=== PATIENT | male | born 1955 | race Caucasian/White ===

== ENCOUNTER 2021-08-17 16:26 | Outpatient (REF) | payer MEDICARE, SELFPAY ==
--- NOTE | ~2021-08-17 | XR_ITS ---
EXAMINATION: XR KNEE, LEFT CLINICAL INFORMATION: Pain in left knee. COMPARISON: None TECHNIQUE: Four views of the left knee. FINDINGS: There is loss of medial and patellofemoral compartment joint space with anterior superior patellar enthesophyte. There is mild suprapatellar joint effusion. No visible acute fracture, dislocation or lytic process seen. The soft tissues are normal. XR/XR knee LT 4V IMPRESSION: Mild degenerative spurring superior patella. No visible acute fracture or dislocation. Minimal suprapatellar joint effusion.
== END 2021-08-17 16:27 | disposition home or self-care (01) ==
LOC: HO.XRAY 16:26
PROVIDERS: PCP Internal Medicine Geriatric Medicine; Visit Provider Internal Medicine Geriatric Medicine
DX: M25.562 Pain in left knee (principal)
CPT/HCPCS: 73564

== ENCOUNTER → 2023-04-13 10:35 | Outpatient (BNVA) | payer MEDICARE, SELFPAY | PROVIDERS: PCP Internal Medicine Geriatric Medicine; Referring Provider Internal Medicine Geriatric Medicine; Visit Provider Internal Medicine Cardiovascular Disease | DX: I48.0 Paroxysmal atrial fibrillation (principal) | CPT/HCPCS: 93005; 99202 ==

== ENCOUNTER → 2023-04-15 12:41 | Outpatient (REF) | payer MEDICARE, SELFPAY ==
--- NOTE | 2023-04-15 12:46 | CA_ITS ---
Transthoracic Echocardiogram Patient (Last, First, Middle): Spike Roberts, Gender: Male Date of : 1955 Age: 68 Procedure Date: 04/15/2023 Procedure Type: Transthoracic Echocardiogram Location: OP Height: 167.64 cm Weight: 74.84 kg BSA: 1.84 m2 Heart Rate: bpm BP: 120 / 70 mmHg Spark Plug Tester: Referring MD: Jose Juan Lemus MD Electric Arc Furnace Operator: Jose Juan Lemus MD Symptoms: I48.0 - Paroxysmal atrial fibrillation Study Quality: Fair ECG Rhythm: Sinus Conclusions: - 1. Normal LV systolic function 2. Trivial aortic regurgitation 3. Normal RV systolic pressure 4. Upper limits of normal ascending aortic size 5. No pericardial effusion Findings Left Ventricle Normal left ventricular size, thickness, and systolic function. The visually estimated ejection fraction is between 60-65%. Spectral Doppler is indicative of a normal filling pattern. Right Ventricle Normal right ventricular cavity size and systolic function. Atria The left atrium is likely dilated. There is no evidence of interatrial shunt. The right atrium is normal in size. Aortic Valve Normal aortic valve structure and function. There is no aortic valve stenosis. There is trace (trivial) aortic valve regurgitation. Mitral Valve There is mild anterior and posterior mitral leaflet thickening. There is mild mitral valve regurgitation. There is no mitral valve stenosis. Pulmonic Valve The pulmonic valve was not well visualized. Tricuspid Valve Likely normal tricuspid valve structure and function. There is trace tricuspid valve regurgitation. The right ventricular systolic pressure is normal. The right ventricular systolic pressure is 19 mmHg. Normal right atrial pressure. There is no evidence of pulmonary hypertension. Great Vessels The pulmonary artery was not well visualized. Venous The inferior vena cava is normal in size and collapses greater than 50% with inspiration. Pericardium/Pleural There is no evidence of pericardial effusion. Prior Study Comparison No prior study available for comparison. Measurements 2D Linear Measurements IVSd: 1.03 0.6-0.9/0.6-1.0 cm LVIDd: 4.77 3.9-5.3/4.2-5.9 cm LVIDd Index: 2.59 2.4-3.2/2.2-3.1 cm/m2 LVIDs: 3.30 2.0-3.6 cm LVPWd: 0.87 0.7-1.1 cm LA Diam: 4.00 2.7-3.8/3.0-4.0 cm LAIDs Index: 2.17 1.5-2.3 cm/m2 LV Mass: 195.18 67-162/88-224 g LV Mass Index: 106.08 43-95/49-115 g/m2 LVOT Diam: 2.10 3.0+(-)1.3 cm 2D Systolic Function EF 4C: 59.60 >55% EF 2C: 63.00 >55% EF BiP: 61.30 >55% Mitral Valve MV Pk E: 0.56 MV PK A: 0.52 MV Decel Time: 270.00 E/A: 1.10 E'Lateral: 11.40 E'Medial: 6.96 E/E' Med: 8.10 E/E' Lat: 4.90 PHT: 79.00 MVA PHT: 2.78 Decel [place]: 2.08 Aortic Valve AoV Pk Petr: 1.57 AoV Mn Petr: 1.04 AoV VTI: 0.32 AoV Pk Grad: 10.00 Aov Mn Grad: 5.00 CELY Cont.VTI: 2.87 LVOT LVOT Pk Petr: 1.34 LVOT Mn Petr: 0.80 LVOT VTI: 0.26 LVOT Pk Grad: 7.00 LVOT Mn Grad: 3.00 LVOT Diam: 2.10 LVOT Area: 3.46 Diastolic Function MV Pk E: 0.56 MV Pk A: 0.52 E/A: 1.10 E'Medial: 6.96 E/E' Med: 8.10 E' Laterial: 11.40 E/E' Lat: 4.90 Right Ventricle TAPSE (mm): 24.00 TVS' Petr: 11.00 Tricuspid Valve TR Pk Petr: 2.01 TR Pk Grad: 16.00 RA Press: 3.00 RVSP: 19.00 Great Vessels Aorta Sinus of Valsalva: 3.43 2.0-3.[address] [place]: 2.79 1.7-3.4 cm Ao Asc: 3.60 2.1-3.4 cm Updated in Other Vendor System with Status of Final Suhas Gill MD electronically signed on 04/16/2023 2:09:49 PM with status of Final
== END ==
LOC: HO.CARD 12:41
PROVIDERS: PCP Internal Medicine Geriatric Medicine; Visit Provider Internal Medicine Cardiovascular Disease
DX: I48.0 Paroxysmal atrial fibrillation (principal)
CPT/HCPCS: 93306

== ENCOUNTER → 2023-04-25 08:19 | Outpatient (REF) | payer MEDICARE, SELFPAY ==
--- NOTE | 2023-04-25 08:21 | CA_ITS ---
Acquisition Time: 2023-04-25 08:33:42 Total Exercise Time: 00:07:40 Test Indications: AFIB Medications: SEE H Protocol: REN Max HR: 155 BPM 103% of Pred: 150 BPM Max BP: 160/084 mmHG Max Work Load: 9.5 METS Exercise stress test exercise 7 min 40 sec of Ren protocol achieivng 102% MPHR, with mild SOB, no chest discomfort, with frequent isolated PVCs and short NSVT runs noted during stage 3, longest 7 beats, without EKG changes meeting criteria for ischemia. Test reviewed with Mayito. Referred By: Jose Juan Lemus Overread By: NIGEL CAMARENA
== END ==
LOC: HO.CARD 08:19
PROVIDERS: PCP Internal Medicine Geriatric Medicine; Visit Provider Internal Medicine Cardiovascular Disease
DX: I48.0 Paroxysmal atrial fibrillation (principal)
CPT/HCPCS: 93017

== ENCOUNTER 2023-07-18 15:16 | Outpatient (REF) | payer MEDICARE, SELFPAY ==
[2023-07-18 17:21] LABS: Cholesterol 157 mg/dL (<200); HDL Cholesterol 81 mg/dL (>40); LDL Cholesterol Calculated 66 mg/dL (<100); Triglycerides 50 mg/dL (<150)
[2023-07-18 17:37] LABS: TSH reflex Free T4 1.82 uIU/mL (0.32-4.0)
== END 2023-07-18 15:17 | disposition home or self-care (01) ==
LOC: HO.HHCL 15:16
PROVIDERS: Visit Provider Registered Nurse
DX: E78.00 Pure hypercholesterolemia, unspecified (principal); E03.9 Hypothyroidism, unspecified
CPT/HCPCS: 36415; 80061; 84443

== ENCOUNTER 2023-08-17 08:55 | Outpatient (AMB) | payer MEDICARE, SELFPAY ==
--- NOTE | 2023-08-17 09:10 | MHC.OFFVIS ---
Intake Vital Signs 08/17/23 09:11 Height 5 ft 6 in Weight 167 lb 8.821 oz BMI 27.0 BP 120/76 Blood Pressure Location Lt brachial Position Sitting Pulse 62 Intake Visit Reasons: 3 MON FUP AFTER ECHO Intake Note: 3 month follow-up after echo feeling good has not had any afib since February Fuel Yard Operator Required: No Allergies No Known Allergies [No Known Allergies*] Allergy (Verified 04/13/23 10:49) Medication List - Last Reconciled 08/17/23 by Jose Juan Lemus MD flecainide 300 mg (2 x 150 mg) PO ONCE PRN latanoprost 0.005% 1 drp ophthalmic (eye) BEDTIME levothyroxine (Synthroid) 88 mcg PO DAILY pravastatin 20 mg PO DAILY tamsulosin 0.4 mg PO DAILY zolpidem 5 mg PO BEDTIME PRN HPI HPI Comments History of Present Illness Details Pleasant 68-year-old gentleman who is here for follow-up. 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 He had paroxysmal atrial fibrillation. We decided to pill in the pocket approach. He returns for follow-up and has no symptoms currently. He did not have any palpitation and did not require any flecainide. Chads Vasc score was 1 and he has not been on anticoagulation currently. Continues to be active and has no exertional symptoms. Overall stable. Denying any symptoms. [facility] Surgical History (Updated 04/13/23 @ 10:50 by YAMILA Ulrich) History of circumcision Family History (Updated 04/13/23 @ 10:52 by YAMILA Ulrich) Mother Cancer Father Heart disease S/P triple vessel bypass Diabetes Amputation leg, bilat Paternal Uncle Heart disease Social History (Updated 04/13/23 @ 10:53 by YAMILA Ulrich) Alcohol intake: current Alcohol intake frequency: a few times a month Patient Tobacco Use Status: Never used Tobacco Review of Systems Const Denies chills, Denies fatigue, Denies fever(s), Denies frequent falls, Denies weakness, Denies weight gain and Denies weight loss ENT Denies dizziness Card Denies chest pain, Denies leg edema, Denies lightheadedness, Denies palpitations, Denies dyspnea, Denies dyspnea on exertion, Denies orthopnea and Denies other (loss of consciousness) Resp Denies cough, Denies dyspnea and Denies dyspnea on exertion GI Denies hematochezia and Denies change in stool character Musc Denies abnormal gait, Denies muscle weakness, Denies numbness, Denies radiating pain into limb and Denies tingling Neuro Denies abnormal gait, Denies dizziness, Denies frequent falls, Denies numbness, Denies tingling and Denies weakness Endo Denies fatigue and Denies palpitations Physical Exam Vital Signs: Last Vital Signs Pulse 62 08/17/23 09:11 BP 120/76 08/17/23 09:11 BMI result Body Mass Index 27.0 GENERAL APPEARANCE: in no acute distress, pleasant. NECK: no carotid bruit, no jugular venous distention. SKIN: no suspicious lesions, warm and dry. HEART: no murmurs, regular rate and rhythm. LUNGS: clear to auscultation bilaterally. ABDOMEN: soft, nontender. EXTREMITIES: no edema. PERIPHERAL PULSES: equal. NEUROLOGIC: No gross deficits, AAO X 3 Assessment & Plan Assessment & Plan (1) PAF (paroxysmal atrial fibrillation): Code(s): I48.0 - Paroxysmal atrial fibrillation Plan Pleasant 68-year-old gentleman who is here for follow-up. He has history of paroxysmal atrial fibrillation. We have been treating him with pain in the pocket approach. He has not required flecainide since his initial visit in February 2023. Medically stable. He will see us back in 1 year. Thank you for allowing me to participate in the care of your patient. Please feel free to contact me if you have any questions. Coding Level of Care Code Est Pt Level 3 (77773) Diagnoses PAF (paroxysmal atrial fibrillation) I48.0
[2023-08-17 09:11] VITALS: BP 120/76; PULSE 62; BMI 27.0
== END 2023-08-17 10:01 | disposition home or self-care (01) ==
PROVIDERS: PCP Internal Medicine Geriatric Medicine; Visit Provider Internal Medicine Cardiovascular Disease
DX: I48.0 Paroxysmal atrial fibrillation (principal)
CPT/HCPCS: 99213

== ENCOUNTER → 2023-08-17 08:55 | Outpatient (BNVA) | payer MEDICARE, SELFPAY | PROVIDERS: PCP Internal Medicine Geriatric Medicine; Visit Provider Internal Medicine Cardiovascular Disease | DX: I48.0 Paroxysmal atrial fibrillation (principal) | CPT/HCPCS: 99212 ==

== ENCOUNTER 2023-11-16 09:07 | Outpatient (REF) | payer MEDICARE, SELFPAY ==
[2023-11-16 11:26] LABS: MANUAL DIFF FLAG NO
[2023-11-16 11:30] LABS: Basophils Percent Auto 0.2 % (0-2); Eosinophils Percent Auto 0.4 % (0-4); Hematocrit 45.5 % (42.0-52.0); Hemoglobin 15.3 g/dl (14.0-18.0); Imm Gran Abs Auto 0.02 X10*3/uL (0.00-0.03); Imm Gran Pct Auto 0.4 % (0.0-0.4); Lymphocytes Absolute Auto 1.2 X10*3/uL (1.2-4.9); Lymphocytes Percent Auto 23.2 % (20-40); Mean Corpuscular HGB Conc 33.6 g/dl (31.0-36.0); Mean Corpuscular Hemoglobin 30.8 pg (27.0-33.0); Mean Corpuscular Volume 91.5 fL (80.0-98.0); Mean Platelet Volume 10.2 fL (9.4-12.4); Monocytes Absolute Auto 0.3 X10*3/uL (0.1-1.2); Monocytes Percent Auto 6.5 % (2-11); Neutrophils Absolute Auto 3.4 x10*3/uL (2.0-8.3); Neutrophils Percent Auto 69.3 % (45-73); Platelet Count 203 X10*3/uL (160-400); Red Blood Count 4.97 X10*6/uL (4.60-5.80); Red Cell Distribution Width 12.6 % (11.0-16.0)
[2023-11-16 12:08] LABS: Alanine Aminotransferase 20 U/L (0-40); Albumin Level 4.1 g/dL (3.5-5.0); Alkaline Phosphatase 74 U/L (39-117); Anion Gap 10 (12-20); Aspartate Amino Transferase 21 U/L (5-37); Bilirubin Total 1.1 mg/dL (0.0-1.0); Blood Urea Nitrogen 16 mg/dL (9-16); Calcium 9.6 mg/dL (8.4-10.2); Carbon Dioxide 25 mmol/L (22-29); Chloride 106 mmol/L (96-108); Cholesterol 145 mg/dL (<200); Estimated Glomerular Filt Rate 57; Glucose Random 86 mg/dL (60-115); HDL Cholesterol 76 mg/dL (>40); LDL Cholesterol Calculated 61 mg/dL (<100); Potassium 4.1 mmol/L (3.3-5.1); Sodium 137 mmol/L (135-145); Triglycerides 41 mg/dL (<150)
[2023-11-16 12:09] LABS: TSH reflex Free T4 1.76 uIU/mL (0.32-4.0)
== END 2023-11-16 09:08 | disposition home or self-care (01) ==
LOC: HO.HHCL 09:07
PROVIDERS: Visit Provider Internal Medicine Geriatric Medicine
DX: E78.00 Pure hypercholesterolemia, unspecified (principal); I48.0 Paroxysmal atrial fibrillation; F51.01 Primary insomnia
CPT/HCPCS: 36415; 80053; 80061; 84443; 85025

== ENCOUNTER 2023-11-30 09:02 | Outpatient (REF) | payer MEDICARE, SELFPAY ==
[2023-11-30 12:27] LABS: Anion Gap 11 (12-20); Blood Urea Nitrogen 16 mg/dL (9-16); Carbon Dioxide 25 mmol/L (22-29); Chloride 105 mmol/L (96-108); Estimated Glomerular Filt Rate > 60; Glucose Random 78 mg/dL (60-115); Sodium 137 mmol/L (135-145)
== END 2023-11-30 09:03 | disposition home or self-care (01) ==
LOC: HO.HHCL 09:02
PROVIDERS: Visit Provider Internal Medicine Geriatric Medicine
DX: R79.89 Other specified abnormal findings of blood chemistry (principal)
CPT/HCPCS: 36415; 80048

== ENCOUNTER → 2024-06-20 08:51 | Outpatient (REF) | payer MEDICARE, SELFPAY | LOC: HO.SL 08:51 | PROVIDERS: PCP Internal Medicine Geriatric Medicine; Visit Provider Internal Medicine Geriatric Medicine | DX: G47.10 Hypersomnia, unspecified (principal); R06.83 Snoring; I48.0 Paroxysmal atrial fibrillation | CPT/HCPCS: 95806 ==

== ENCOUNTER → 2024-06-20 19:00 | Outpatient (BNV) | payer MEDICARE, SELFPAY | PROVIDERS: PCP Internal Medicine Geriatric Medicine; Visit Provider Internal Medicine | DX: R06.83 Snoring (principal) | CPT/HCPCS: 95806 ==

== ENCOUNTER 2024-08-15 09:02 | Outpatient (AMB) | payer MEDICARE, SELFPAY ==
--- NOTE | 2024-08-15 09:13 | MHC.OFFVIS ---
Vital Signs 08/15/24 09:14 Height 5 ft 6 in Weight 166 lb 10.711 oz BMI 26.9 BP 120/64 Blood Pressure Location Lt brachial Position Sitting Pulse 54 Pulse Source Monitor Intake Visit Reasons: 1 yr f/up Intake Note: 1 yr f/up Natural Resources Faculty Member Required: No Accompanied by: Self / Same As Patient Allergies No Known Allergies [No Known Allergies*] Allergy (Verified 04/13/23 10:49) Medication List - Last Reconciled 08/15/24 by Jose Juan Lemus MD atenolol 12.5 mg (1/2 x 25 mg) PO DAILY 90 days flecainide 50 mg PO Q12H 90 days latanoprost 0.005% 1 drp ophthalmic (eye) BEDTIME levothyroxine (Synthroid) 88 mcg PO DAILY pravastatin 20 mg PO DAILY tamsulosin 0.4 mg PO DAILY zolpidem 5 mg PO BEDTIME PRN HPI Comments Details: Pleasant 69-year-old gentleman who is here for follow-up. 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 He had paroxysmal atrial fibrillation. We decided to pill in the pocket approach. He returns for follow-up and has no symptoms currently. He did not have any palpitation and did not require any flecainide. Chads Vasc score was 1 and he has not been on anticoagulation currently. Continues to be active and has no exertional symptoms. Overall stable. Denying any symptoms. 08/15/2024: He is here for follow-up. He is on flecainide 50 mg twice a day along with the atenolol. Chads Vasc 1 and currently not on anticoagulation. Has been doing okay on flecainide and atenolol. He has been complaints are fatigue and shortness of breath. He is saying that he is unable to do what he was able to do before he started taking beta-blockers. He had some issues with beta-yola previously 2. He has questions about why he is not on anticoagulation which were answered. He is also asking whether he can get a calcium score. We discussed that he is already on statin therapy and his last cholesterol testing showed LDL of 61. [facility] Surgical History History of circumcision Family History Mother Cancer Father Heart disease S/P triple vessel bypass Diabetes Amputation leg, bilat Paternal Uncle Heart disease Social History Alcohol intake: current Alcohol intake frequency: a few times a month Patient Tobacco Use Status: Never used Tobacco Review of Systems Const Denies chills, Denies fatigue, Denies fever(s), Denies frequent falls, Denies weakness, Denies weight gain and Denies weight loss ENT Denies dizziness Card Denies chest pain, Denies leg edema, Denies lightheadedness, Denies palpitations, Denies dyspnea and Denies dyspnea on exertion Resp Denies cough, Denies dyspnea and Denies dyspnea on exertion GI Denies hematochezia Musc Denies abnormal gait, Denies muscle weakness, Denies numbness, Denies radiating pain into limb and Denies tingling Neuro Denies abnormal gait, Denies dizziness, Denies frequent falls, Denies numbness, Denies tingling and Denies weakness Endo Denies fatigue and Denies palpitations Physical Exam Vital Signs: Last Vital Signs Pulse 54 08/15/24 09:14 BP 120/64 08/15/24 09:14 BMI result Body Mass Index 26.9 GENERAL APPEARANCE: in no acute distress, pleasant. NECK: no carotid bruit, no jugular venous distention. SKIN: no suspicious lesions, warm and dry. HEART: no murmurs, regular rate and rhythm. Bradycardic. LUNGS: clear to auscultation bilaterally. ABDOMEN: soft, nontender. EXTREMITIES: no edema. PERIPHERAL PULSES: equal. NEUROLOGIC: No gross deficits, AAO X 3 Office Procedures EKG Details: Sinus bradycardia 54 beats per minute, first-degree AV block with TX interval 212 milliseconds, poor R-wave progression, QTC 396 milliseconds. [id number], Complete Assessment & Plan Assessment & Plan (1) PAF (paroxysmal atrial fibrillation): Code(s): I48.0 - Paroxysmal atrial fibrillation Category: Medical Plan Pleasant 69-year-old gentleman who is here for follow-up. He has background history of paroxysmal atrial fibrillation. He is currently being treated with rhythm control strategy flecainide and atenolol. His CHADS-VASc is 1 currently and he is not on anticoagulation. I have explained to him that if he develops diabetes or hypertension or once across his 73 years of age we may need to have a discussion about anticoagulation. He wants to do a coronary calcium score. We will arrange this for him. If he has extensive calcification then I would change his pravastatin to atorvastatin. I am not sure whether coronary calcification will count as vascular disease but there is some retrospective data about coronary calcification and stroke risk in atrial fibrillation patients. This will require some discussion about anticoagulation in case his coronary calcium score is fairly high. Multiple questions which were answered during the visit. He will see us back in 1 year. Thank you for allowing me to participate in the care of your patient. Please feel free to contact me if you have any questions. Orders: Orders CT Coronary Calcium Score Today I48.0 - Paroxysmal atrial fibrillation Coding Level of Care Code Est Pt Level 5 (05618) Diagnoses PAF (paroxysmal atrial fibrillation) I48.0 CPT Codes EKG - CPT: 30070-[id number], Complete ([id number])
[2024-08-15 09:14] VITALS: BP 120/64; PULSE 54; BMI 26.9
== END 2024-08-15 09:46 | disposition home or self-care (01) ==
PROVIDERS: PCP Internal Medicine Geriatric Medicine; Visit Provider Internal Medicine Cardiovascular Disease
DX: I48.0 Paroxysmal atrial fibrillation (principal)
CPT/HCPCS: 93010; 99214

== ENCOUNTER → 2024-08-15 09:02 | Outpatient (BNVA) | payer MEDICARE, SELFPAY | PROVIDERS: PCP Internal Medicine Geriatric Medicine; Visit Provider Internal Medicine Cardiovascular Disease | DX: I48.0 Paroxysmal atrial fibrillation (principal); I44.0 Atrioventricular block, first degree; R94.31 Abnormal electrocardiogram [ECG] [EKG] | CPT/HCPCS: 93005; 99212 ==

== ENCOUNTER 2024-10-29 08:19 | Outpatient (REF) | payer MEDICARE, SELFPAY ==
--- OUTSIDE RECORDS SUMMARY | 2024-10-29 08:22 | XMS_ITS | Patient Health Record ---
Author Organization [facility] Address [address], [place] [id number] Care Team Providers Care Industrial Economics Teacher Name Role Phone Chavez Sahu Unavailable [phone] Reason For Referral No Information Medications Medication SIG (Take, Route, Frequency, Duration) Notes Start Date End Date Status levothyroxine Active Plan Of Treatment No Information Insurance Providers Payer Name Payer Address Payer Phone Subscriber Number Group Number Insured Name Patient Relationship to Insured Coverage Start Date Coverage End Date zMA Medicare - Part B [employer] [address] [place] [address] [id number] Spike Roberts Self - patient is the insured BCBS of [facility] [address] [place] [address] [id number] Spike Roberts Self - patient is the insured 8 Medical (General) History Medical History History ICD Code Hypothyroid, otherwise he is healthy
[2024-10-29 09:25] LABS: Alanine Aminotransferase 24 U/L (0-40); Alkaline Phosphatase 77 U/L (39-117); Anion Gap 10 (12-20); Aspartate Amino Transferase 28 U/L (5-37); Blood Urea Nitrogen 13 mg/dL (9-16); Calcium 9.3 mg/dL (8.4-10.2); Carbon Dioxide 25 mmol/L (22-29); Chloride 108 mmol/L (96-108); Cholesterol 147 mg/dL (<200); Estimated Glomerular Filt Rate > 60; Glucose Random 87 mg/dL (60-115); HDL Cholesterol 77 mg/dL (>40); LDL Cholesterol Calculated 61 mg/dL (<100); Sodium 139 mmol/L (135-145); Total Protein 6.8 g/dL (6.5-8.0); Triglycerides 45 mg/dL (<150)
[2024-10-29 09:31] LABS: TSH reflex Free T4 0.78 uIU/mL (0.32-4.0)
[2024-10-29 09:35] LABS: Prostate Specific Antigen 0.52 ng/mL (<0.05-4.0)
== END 2024-10-29 08:20 | disposition home or self-care (01) ==
LOC: HO.LAB 08:19
PROVIDERS: PCP Internal Medicine Geriatric Medicine; Visit Provider Internal Medicine Geriatric Medicine
DX: E03.9 Hypothyroidism, unspecified (principal); H81.13 Benign paroxysmal vertigo, bilateral; E78.00 Pure hypercholesterolemia, unspecified; Z12.5 Encounter for screening for malignant neoplasm of prostate
CPT/HCPCS: 36415; 80053; 80061; 84153; 84443

== ENCOUNTER 2025-02-09 10:08 | Outpatient (REF) | payer MEDICARE, SELFPAY ==
--- NOTE | ~2025-02-09 | XR_ITS ---
EXAMINATION: XR CHEST 2 VIEWS HISTORY: 2 weeks of cough and malaise, LLL crackles COMPARISON: There are no prior studies for comparison. FINDINGS: PA and lateral views of the chest are submitted. The lungs are expanded and clear. There is no pleural effusion, pneumothorax, or pulmonary vascular congestion. The heart is normal in size. There is scoliosis and degenerative disc disease of the spine. XR/XR chest 2V IMPRESSION: Clear lungs. Electronically signed by: Ad Quinones MD 02/11/2025 08:20 AM EDT
--- OUTSIDE RECORDS SUMMARY | 2025-02-09 10:11 | XMS_ITS | Encounter Summary ---
Author Organization [facility] Address [address] [place] [address] Care Team Providers Care Woven Blind Loom Tender Name Role Phone Jose Antonio Luevano MD Primary Care Provider + [phone] Reason for Visit * Reason Onset Date Comments TEST RESULTS 09/24/2020 Encounter Details Date Type Department Care Team Description 09/24/2020 Telephone Dermatology - [address] [id number] Katerine Hussein PA-C TEST RESULTS Social History Tobacco Use Types Packs/Day Years Used Date Smoking Tobacco: Never Smokeless Tobacco: Never Alcohol Use Standard Drinks/Week Comments Yes 0 (1 standard drink = 0.6 oz pur e alcohol) occ Sex Assigned at Date Recorded Not on file COVID-19 Exposure Response Date Recorded In the last month, have you been in contact with someone who was confirmed or suspected to have Coronavirus / COVID-19? 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 We reviewed treatment options including Mohs surgery versus plastic surgery. We reviewed risks and benefits of both treatment. He would like to contact his insurance company to decide which p rocedure is better covered. I have given him the names of the surgeons in the area. He will contactme next week with his decision. At that time I would also like him to schedule a follow-up in 6 weeks to reevaluate the other 2 biopsies which were consistent with actinic keratoses. * Telephone Encounter - Holli Thais - 09/24/2020 9:01 AM EST Patient is returning a phone call to discuss test results, please advise. documented in this encounter Plan of Treatment Not on file documented as of this encounter Visit Diagnoses Not on filedocumented in this encounter Care Teams Woven Blind Loom Tender Relationship Specialty Start Date End Date Jose Antonio Luevano MD [address] [place] [id number] PCP - General Internal Medicine 08/15/15 documented as of this encounter
--- OUTSIDE RECORDS SUMMARY | 2025-02-09 10:11 | XMS_ITS | Encounter Summary ---
Author Organization [facility] Address [address] [place] [address] Care Team Providers Care Night Nurse Name Role Phone Jose Antonio Luevano MD Primary Care Provider [phone] Reason for Visit * Reason Onset Date Comments Quality-fobt 02/26/2016 fit cards given today at physical. Encounter Details Date Type Department Care Team Description 02/26/2016 Telephone Adult Medicine [address] [address] Jose Antonio Luevano MD [address] [place] [id number] Quality-fobt (fit cards given today at physical.) Social History Tobacco Use Types Packs/Day Years Used Date Smoking Tobacco: Never Smokeless Tobacco: Never Alcohol Use Standard Drinks/Week Comments Yes 0 (1 standard drink = 0.6 oz pur e alcohol) occ Sex Assigned at Date Recorded Not on file documented as of this encounter Plan of Treatment Not on file documented as of this encounter Visit Diagnoses Not on filedocumented in this encounter Care Teams Night Nurse Relationship Specialty Start Date End Date Jose Antonio Luevano MD [address] [place] [id number] PCP - General Internal Medicine 08/15/15 documented as of this encounter
--- OUTSIDE RECORDS SUMMARY | 2025-02-09 10:11 | XMS_ITS | Encounter Summary ---
Author Organization [employer] Address [address] [facility] 7[address] [place] [address] Care Team Providers Care Smooth Stucco Resurfacer Name Role Phone Name, Ramon LAY Primary Care Provider [phone] Reason for Visit * Reason Comments Cough Encounter Details Date Type Department Care Team ([facility] st Contact Info) Description 02/09/2025 9:20 AM EDT Office Visit [facility] [address] [id number] Name, MD Ramon [address] [place] [phone] Cough, unspecified type (Primary Dx); Hoarseness of voice; Stuffy and runny nose; Rapid or irregular heartbeat; Paroxysmal atrial fibrillation (CMS/HCC) Social History Tobacco Use Types Packs/Day Years Used Date Smoking Tobacco: Never Passive Smoke Exposure: Never Smokeless Tobacco: Never Tobacco Cessation:Counseling Given: Not Answered Alcohol Use Standard Drinks/Week Comments Yes 2 (1 standard drink = 0.6 oz pur e alcohol) 1-2 daily Depression Answer Date Recorded Patient Health Questionnaire-9 Score 0 03/19/2024 Patient Health Questionnaire-9 Score 0 03/19/2024 Last PHQ-9: Questionnaire Data Not on file 0 03/19/2024 Housing Stability Answer Date Recorded What is your housing situation today? I have berny emmanuel 03/19/[address] you li ve. Do you have problems with any of the following? None of the above 03/19/2024 Food Insecurity Answer Date Recorded Within the past 12 months, y ou worried that your food would run out before you got money to buy more: Never True 03/19/2024 Within the past 12 months,th e food you bought just didn't last and you didn't have enough money to get more: Never True Transportation Answer Date Recorded In the past 12 months, has l ack of transportation kept you from medical appts, meetings, work or from getting things needed for daily living? No 03/19/2024 Utilities Answer Date Recorded In the past 12 months, has t he electric, gas, oil or water company threatened to shut off services in your home? No 03/19/2024 Depression Answer Date Recorded Patient Health Questionnaire-2 Score 0 03/19/2024 Sex and Gender Information Value Date Recorded Sex Assigned at Male 08/30/2022 10:36 AM EDT Legal Sex Male 10:36 AM EDT Gender Identity Male 08/30/2022 10:36 AM EDT Sexual Orientation Straight 08/30/2022 10 :36 AM EDT documented as of this encounter Last Filed Vital Signs Vital Sign Reading Time Taken Comments Blood Pressure 105/63 02/09/2025 9:23 AM EDT Pulse 64 02/09/2025 9:23 AM EDT Temperature 36.5 ??C (97.7 ??F) 02/09/2025 9:23 AM ED T Respiratory Rate 20 02/09/2025 9:23 AM EDT Oxygen Saturation 97% 02/09/2025 9:23 AM EDT Inhaled Oxygen Concentration - - Weight 76.2 kg (168 lb) 02/09/2025 9:23 AM EDT Height 167.6 cm (5' 6 ) 02/09/2025 9:23 AM EDT Body Mass Index 27.12 02/09/2025 9:23 AM EDT documented in this encounter Progress Notes * Ramon Cuellar MD - 02/09/2025 9:20 AM EDT Subjective Patient ID: Misael Roberts is a 69 y.o. male who presents for Cough. Misael comes for a sick visit. The patient has 2 weeks of cough, tachycardia, runny nose, hoarseness,malaise. The patient had chills at home. He denies any fever. He has been using [id number] dextromethorphan with small improvement of the cough. He has a personal history of paroxysmal A-fib. He has been careful to avoid oral decongestants. The patient A-fib has been occurring much more oftensince he has been sick. His installment agent has recommended that he start on Eliquis and he suggested him to double the dose of atenolol. He has not done either yet. Today rapid testing for COVID and flu were negative. Review of Systems Constitutional: Positive for chills and fatigue. Negative for fever. HENT: Positive for rhinorrhea. Negative for sinus pain and sore throat. Respiratory: Positive for cough. Negative for chest tightness and shortness of breath. Cardiovascular: Negative for chest pain, palpitations and leg swelling. Gastrointestinal: Negative for abdominal pain and blood in stool. Visit Vitals BP 105/63 (BP Location: Left arm, Patient Position: Sitting, BP Cuff Size: Adult) Pulse 64 Temp 97.7 ??F (36.5 ??C) (Oral) Resp 20 Ht 5' 6 (1.676 m) Wt 168 lb (76.2 kg) SpO2 97% BMI 27.12 kg/m?? Smoking Status Never BSA 1.88 m?? Objective Physical Exam Constitutional: Appearance: Normal appearance. Cardiovascular: Rate and Rhythm: Normal rate. Rhythm irregular. Heart sounds: No murmur heard. Pulmonary: Effort: Pulmonary effort is normal. No respiratory distress. Breath sounds: Rales present. No wheezing or rhonchi. Comments: LLL rales Abdominal: Palpations: Abdomen is soft. Tenderness: There is no abdominal tenderness. Musculoskeletal: Right lower leg: No edema. Left lower leg: No edema. Neurological: Mental Status: He is alert. Latest Reference Range & Units 02/09/25 09:53 02/09/25 09:54 Influenza A Negative, Indeterminate Negative Influenza B Negative, Indeterminate Negative Coronavirus Antigen PCR Negative, Indeterminate, None Detected, Invalid, Specimen unsatisfactory for evaluation, Weakly Positive Negative Assessment/Plan Diagnoses and all orders for this visit: Cough, unspecified type Comments: Patient with 2 weeks of cough, malaise, worsening of his baseline paroxysmal A- fib. His vitals are normal, I recommended to start using the Eliquis prescribed by his installment agent for stroke prevention, continue atenolol. I will start the patient on treatment for possible community-acquired pneumonia with Augmentin and azithromycin, I recommended evaluation with CBC, BMP, TSH and chest x-ray. He may continue using dextromethorphan at home. He is recommended to rest. I will have my nurses call him to see how he is doing on Tuesday. Orders: - POCT Rapid Covid-19 MARTÍNEZ ID NOW - POCT Rapid Influenza A MARTÍNEZ ID NOW - POCT Rapid Influenza B MARTÍNEZ ID NOW - amoxicillin-clavulanate (Augmentin) 875-125 MG tablet; Take 1 tablet by mouth 2 times daily for 5days. - azithromycin (Zithromax) 250 MG tablet; Take 2 tablets (500 mg) by mouth Once per day for 1 day, THEN 1 tablet (250 mg) Once per day for 4 days. - CBC auto differential; Future - Basic Metabolic Panel; Future - XR Chest 2 Views; Future Hoarseness of voice Stuffy and runny nose Rapid or irregular heartbeat - TSH W/Reflex to FT4; Future Paroxysmal atrial fibrillation (CMS/HCC) documented in this encounter Plan of Treatment Upcoming Encounters Date Type Department Care Team (Late st Contact Info) Description 05/09/2025 9:00 AM EDT Office Visit [facility] [address] [place] [phone] Ramon Cuellar MD [address] [place] [address] Scheduled Orders Name Type Priority Associated Diagnoses Orde r Schedule CBC auto differential Lab Routine Cough, unspecified type Expected: 02/09/2025 (Approximate), Expires: 02/09/2026 Basic Metabolic Panel Lab Routine Cough, unspecified type Expected: 02/09/2025 (Approximate), Expires: 02/09/2026 TSH W/Reflex to FT4 Lab Routine Rapid or irregular heartbeat Expected: 02/09/2025 (Approximate), Expires: 02/09/2026 XR Chest 2 Views Imaging Routine Cough, unspecified type Expected: 02/09/2025, Expires: 02/09/2026 documented as of this encounter Procedures Procedure Name Priority Date/Time Associated Diagnosis Comments POCT INFLUENZA B (ID NOW RAPID MOLECULAR) Routine 02/09/2025 9:54 AM EDT Cough, unspecified type POCT INFLUENZA A (ID NOW RAPID MOLECULAR) Routine 02/09/2025 9:54 AM EDT Cough, unspecified type POCT COVID-19 AG MARTÍNEZ ID NOW Routine 02/09/2025 9:53 AM EDT Cough, unspecified type documented in this encounter Results * POCT Rapid Influenza B MARTÍNEZ ID NOW (02/09/2025 9:54 AM EDT) Pathologist [facility] Influenza B Negative Negative, Indeterminate LABS QC Media Lot # [id number] [facility] Lot# Expiration Date LABS Swab 02/09/2025 9:54 AM EDT us Ramon Cuellar MD POINT OF CARE TEST ENTER/EDIT OR DERABLES Final Result Performing Organization Address City/[facility]/ZIP Co de Phone Number LABS [address] [place] [phone] * POCT Rapid Influenza A MARTÍNEZ ID NOW (02/09/2025 9:54 AM EDT) [facility] Influenza A Negative Negative, Indeterminate LABS QC Media Lot # [id number] [facility] Lot# Expiration Date LABS Swab 02/09/2025 9:54 AM EDT us Ramon Cuellar MD POINT OF CARE TEST ENTER/EDIT OR DERABLES Final Result Performing Organization Address City/[facility]/ZIP Co de Phone Number LABS [address] [place] [phone] * POCT Rapid Covid-19 MARTÍNEZ ID NOW (02/09/2025 9:53 AM EDT) Pathologist [facility] Coronavirus Antigen PCR Negative Negative, Indeterminate, None Detected, Invalid, Specimen unsatisfactory for evaluation, Weakly Positive QC Media Lot # [id number] Lot# Expiration Date Swab 02/09/2025 9:53 AM EDT Ramon Cuellar MD POINT OF CARE TEST ENTER/EDIT OR DERABLES Final Result documented in this encounter Visit Diagnoses Diagnosis Cough, unspecified type- Primary Hoarseness of voice Dysphonia Stuffy and runny nose Other diseases of nasal cavity and sinuses Rapid or irregular heartbeat Unspecified tachycardia Paroxysmal atrial fibrillation (CMS/HCC) Atrial fibrillation documented in this encounter Additional Health Concerns Assessment Noted Time PHQ-9 Depression Total Score: 0 03/19/20 24 9:41 AM EDT documented as of this encounter Care Teams Smooth Stucco Resurfacer Relationship Specialty Start Date End Date Name, MD Ramon [address] [place] [address] PCP - General Family Medicine 08/18/21 documented as of this encounter
--- OUTSIDE RECORDS SUMMARY | 2025-02-09 10:11 | XMS_ITS | Encounter Summary ---
Author Organization [facility] Address [address] [place] [address] Care Team Providers Care Landscape Crew Leader Name Role Phone Jose Antonio Luevano MD Primary Care Provider [phone] Encounter Details Date Type Department Care Team Description 04/29/2020 Release of Information Medical Records [address] [place] [id number] Abstract, Provider Social History Tobacco Use Types Packs/Day Years [...] on filedocumented in this encounter Care Teams Landscape Crew Leader Relationship Specialty Start Date End Date Jose Antonio Luevano MD [address] [place] [phone] PCP - General Internal Medicine 08/15/15 documented as of this encounter
--- OUTSIDE RECORDS SUMMARY | 2025-02-09 10:11 | XMS_ITS | Encounter Summary ---
Author Organization [facility] Address [address] [place] [address] Care Team Providers Care Supply Assistant Name Role Phone Jose Antonio Luevano MD Primary Care Provider [phone] Encounter Details Date Type Department Care Team Description 02/03/2018 Pt. Non Urgent Medical Question Adult Medicine [address] [phone] Jose Antonio Luevano MD [address] [place] [phone] Social History Tobacco Use Types Packs/Day Years Used Date Smoking Tobacco: Never Smokeless Tobacco: Never Alcohol Use Standard Drinks/Week Comments Yes 0 (1 standard drink = 0.6 oz pur e alcohol) occ Sex Assigned at Date Recorded Not on file documented as of this encounter Progress Notes * Audelia Zuniga M.A. - 02/03/2018 10:52 AM EDTFrom: Misael Roberts To: Jose Antonio Luevano MD Sent: 02/03/2018 9:43 AM EDT Subject: FIT test submitted Oct 07, but results not received I submitted (put in the box inside the 2nd floor Adult Medicine door, as I have done previous years) my FIT test card on October 07. I haven't received a results letter. Nothing in portal messaging either. Do you have my results? Thank you. Misael documented in this encounter Plan of Treatment Not on file documented as of this encounter Visit Diagnoses Not on filedocumented in this encounter Care Teams Supply Assistant Relationship Specialty Start Date End Date Jose Antonio Luevano MD [address] [place] [phone] PCP - General Internal Medicine 08/15/15 documented as of this encounter
--- OUTSIDE RECORDS SUMMARY | 2025-02-09 10:11 | XMS_ITS | Clinical Summary ---
Author Organization [employer] Address [address] [facility] 7[address] [place] [address] Care Team Providers Care Supervisor Fertilizer Name Role Phone Name, Ramon LAY Primary Care Provider [phone] Allergies Active Allergy Reactions Criticality Noted Date Comments Other 10/31/2011 Medications latanoprost (Xalatan) 0.005 % ophthalmic solution Administer 1 drop into both eyes at bedtime. 3 Active zolpidem (Ambien) 5 MG tablet TAKE 1 TABLET BY MOUTH EVERYDAY AT BEDTIME 30 tablet 2 3 Active atenolol (Tenormin) 25 MG tablet Take 0.5 tablets (12.5 mg) by mouth Once per day. 4 Active pravastatin (Pravachol) 20 MG tablet TAKE 1 TABLET EVERY MORNING 90 tablet 2 4 Active levothyroxine (Synthroid) 88 MCG tabletIndication s:Hypothyroidism , unspecified type TAKE 1 TABLET BY MOUTH DAILY 90 tablet 2 4 Active flecainide (Tambocor) 50 MG tablet 3 Active amoxicillin-clav ulanate (Augmentin) 875-125 MG tabletIndication s:Cough, unspecified type Take 1 tablet by mouth 2 times daily for 5 days. 10 tablet 5 02/15/20 25 Active azithromycin (Zithromax) 250 MG tabletIndication s:Cough, unspecified type Take 2 tablets (500 mg) by mouth Once per day for 1 day, THEN 1 tablet (250 mg) Once per day for 4 days. 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 Nephrolithiasis 11/17/2018 MVP (mitral valve prolapse) 02/26/2016 Overview (11/22/2022): Noted in the past Bunion 12/13/2014 DDD (degenerative disc disease), lumbar 12/13/19 15 GERD (gastroesophageal reflux disease) 5 [place]'s disease 12/13/2014 Benign prostatic hyperplasia 12/11/2014 Onychomycosis 12/11/2014 Insomnia 12/11/2014 Hypothyroid 12/11/2014 Tinea pedis 12/11/2014 Arthritis 12/11/2014 Dry eye 10/31/2014 Heartburn 10/31/2012 BPH (benign prostatic hyperplasia) 10/31/2009 Encounters Date Type Department Care Team Description 02/09/2025 9:20 AM EDT Office Visit [facility] [address] [place] [address] Name, MD Ramon Cough, unspecified type (Primary Dx); Hoarseness of voice; Stuffy and runny nose; Rapid or irregular heartbeat; Paroxysmal atrial fibrillation (CMS/HCC) 02/09/2025 Travel 01/24/2025 Telephone [facility] [address] [place] [address] Felicia Valdez [place] March recalls from Last 3 Months Immunizations Name Administration Dates Next Due Hep A, Adult 12/16/2010 Hep B, Adolescent or Pediatric 02/13/2011 Hep B, adult 01/13/2011,12/16/2010 Influenza High-dose Quadriva lent Preservative Free 08/11/2021 Influenza Injectable Quadriv alant Preservative Free IIV4 MDCK 08/19/2017 Influenza Quadrivalent Adjuvanted 08/26/2023,,07/18/2020 Influenza injectable quadriv alent preservative free 08/02/2016 Influenza, High Dose Seasona l, Preservative Free 09/07/2024 Influenza, Unspecified 09/07/2024,08/19/2017, Influenza, seasonal, injecta ble, preservative free 08/21/2015 Moderna Covid-19 Vaccine 12+ 03/04/2022,09/25/20 21,09/15/2021 Moderna Covid-19 Vaccine 6+ Bivalent 02/17/2023, 07/07/2022 Pfizer Covid-19 Vaccine 12+ 01/23/2021, Pneumococcal Conjugate PCV 13 02/02/2019 Pneumococcal Polysaccharide PPSV23 05/08/2020 RSV Adjuvant 09/02/2023 TD (adult), 2 Lf tetanus tox oid, preservative free, adsorbed 08/17/2021 Tdap 12/16/2010 Typhoid, ViCPs 12/16/2010 Zoster, Recombinant 06/21/2019,04/16/2019 Zoster, live 07/30/2013 Social History Tobacco Use Types Packs/Day Years [...] Orientation Straight 08/30/2022 10 :36 AM EDT Last Filed Vital Signs Vital Sign Reading [...] Mass Index 27.12 02/09/2025 9:23 AM EDT Plan of Treatment Upcoming Encounters Date Type Department Care Team (Late st Contact Info) Description 05/09/2025 9:00 AM EDT Office Visit [facility] [address] [place] [address] Name, MD Ramon [address] [place] [address] Health Maintenance Due Date Last Done Comments CT Colonography 1953 Colonoscopy 1953 FIT 1953 Sigmoidoscopy 1953 Derm Melanoma Skin Check 1953 Hepatitis C Screening 1971 Hepatitis B Vaccines (3 of 3 - 19+ 3-dose series) 06/15/2011 02/13/2011, 01/13/2011, 12/16/2010 FOBT 03/12/2023 03/12/2022 Colorectal Cancer Screening 03/12/2025 FIT DNA/Cologuard 03/12/2025 03/12/2022 Depression Screening 03/19/2025 03/19/2024, 03/19/20 SDOH Screening 03/19/2025 03/19/2024 Alcohol/Substance Use Screening 10/23/2025 10/23/2024 Tobacco Screening 02/09/2026 02/09/2025 Lipid Panel 10/29/2029 10/29/2024, 10/31, 07/18/2023, Additional history exists DTaP/Tdap/Td Vaccines (3 - Td or Tdap) 08/17/2031 08/17/2021, 12/16/2010 Hepatitis A Vaccines Aged Out 12/16/2010 No long er eligible based on patient's age to complete this topic Zoster Vaccines Completed 06/21/2019, 03/31, 07/30/2013 Pneumococcal Vaccine: 50+ Years Completed 05/08/2020, 02/02/2019 RSV Patients and Patients Aged 60 years or older Completed 09/02/2023 Influenza Vaccine Completed 09/07/2024, , 08/26/2023, Additional history exists COVID-19 Vaccine Completed 10/19/2024, , 07/22/2023, Additional history exists HIB Vaccines Aged Out No longer eligi ble based on patient's age to complete this topic HPV Vaccines Aged Out No longer eligi ble based on patient's age to complete this topic IPV Vaccines Aged Out No longer eligi ble based on patient's age to complete this topic Meningococcal Vaccine Aged Out No love joseluis eligible based on patient's age to complete this topic RSV under 20 months Aged Out No longe r eligible based on patient's age to complete this topic Rotavirus Vaccines Aged Out No longer eligible based on patient's age to complete this topic Procedures Procedure Name Priority Date/Time Associated Diagnosis Comments POCT INFLUENZA B (ID NOW RAPID MOLECULAR) Routine 02/09/2025 9:54 AM EDT Cough, unspecified type POCT INFLUENZA A (ID NOW RAPID MOLECULAR) Routine 02/09/2025 9:54 AM EDT Cough, unspecified type POCT COVID-19 AG MARTÍNEZ ID NOW Routine 02/09/2025 9:53 AM EDT Cough, unspecified type LIPID PANEL, STANDARD Routine 10/29/2024 8:23 AM EST High cholesterol HM FIT DNA/COLOGUARD CANCER SCREENING Routine 03/12/2022 from Last 3 Months or Most Recently Relevant to Health Maintenance Results * POCT Rapid Influenza B MARTÍNEZ ID NOW (02/09/2025 9:54 AM EDT) Pathologist [facility] Influenza B Negative Negative, Indeterminate [facility] QC Media Lot # [id number] [facility] Lot# Expiration Date [facility] Swab 02/09/2025 9:54 AM EDT us Ramon Cuellar MD POINT OF CARE TEST ENTER/EDIT OR DERABLES Final Result Performing Organization Address City/[facility]/ZIP Co de Phone Number [facility] [address] [place] [phone] * POCT Rapid Influenza A MARTÍNEZ ID NOW (02/09/2025 9:54 AM EDT) Influenza A Negative Negative, Indeterminate [facility] QC Media Lot # [id number] [facility] Lot# Expiration Date [facility] Swab 02/09/2025 9:54 AM EDT us Ramon Cuellar MD POINT OF CARE TEST ENTER/EDIT OR DERABLES Final Result Performing Organization Address City/[facility]/ZIP Co de Phone Number [facility] [address] [place] [phone] * POCT Rapid Covid-19 MARTÍNEZ ID NOW (02/09/2025 9:53 AM EDT) Pathologist [facility] Coronavirus Antigen PCR Negative Negative, Indeterminate, None Detected, Invalid, Specimen unsatisfactory for evaluation, Weakly Positive QC Media Lot # [id number] Lot# Expiration Date Swab 02/09/2025 9:53 AM EDT us Ramon Cuellar MD POINT OF CARE TEST ENTER/EDIT OR DERABLES Final Result * Lipid Panel, Standard (10/29/2024 8:23 AM EST) [facility] Triglycerides 45 <150 mg/dL [facility] Comment:Desirable Triglyceri de: less than 150 mg/dLBorderline High Triglyceride 150-199 mg/dLHigh Triglyceride: 200-499 mg/dLVery High Triglyceride: greater than or equal to 5OO mg/dL Cholesterol 147 <200 mg/dL [facility] Comment:Desirable Cholestero l: less than 200 mg/dLBorderline High Cholesterol: 200-239 mg/dLHigh Cholesterol: greater than 239 mg/dL LDL Cholesterol Calculated 61 <100 mg/dL [facility] Comment:Desirable LDL: less than 100 mg/dLNear Optimal/Above Optimal LDL: 110- 129 mg/dLBorderline High LDL: 130-159 mg/dLHigh LDL: 160-189 mg/dLVery High LDL: greater than or equal to 190 mg/dL HDL Cholesterol 77 >40 mg/dL [facility] Comment:Desirable HDL: great er than 40 mg/dL Note: This HDL assay may give artificially low results in patients with liver disease. Blood Venous blood specimen / Unknown 10/29/2024 8:23 AM EST 10/29/2024 8:26 AM EST us Ramon Cuellar MD LAB BLOOD ORDERABLES Final Resul t [facility] [address] [place] [phone] * FIT DNA/Cologuard Cancer Screening (03/12/2022) Pathologist [facility] Cologuard Cancer Screen Negative Comment:Negative F/U in 3 ye ars Stool Ramon Cuellar MD HEALTH MAINTENANCE Final Result from Last 3 Months or Most Recently Relevant to Health Maintenance Insurance [employer] [place] [employer] PPO Care Teams Supervisor Fertilizer Relationship Specialty Start Date End Date Name, MD Ramon [address] [place] [phone] PCP - General Family Medicine 08/18/21
--- OUTSIDE RECORDS SUMMARY | 2025-02-09 10:11 | XMS_ITS | Encounter Summary ---
Author Organization [facility] Address [address] [place] [address] Care Team Providers Care Director Product Name Role Phone Steve Mills MD Primary Care Provider Unavail able Ramon Cuellar MD Primary Care Provider UnavailJose Antonio Barrett MD Primary Care Provider [phone] Encounter Details Date Type Department Care Team Description 01/24/2015 Pt. Non Urgent Medic al Question Adult Medicine [address] [address] Steve Mills MD Social History Tobacco Use Types Packs/Day Years Used Date Smoking Tobacco: Never Smokeless Tobacco: Never Alcohol Use Standard Drinks/Week Comments Yes 0 (1 standard drink = 0.6 oz pur e alcohol) occ Sex Assigned at Date Recorded Not on file documented as of this encounter Progress Notes * Charlene VyasP.N. - 01/24/2015 2:59 PM EDTFrom: Misael Roberts To: Steve Mills MD Sent: 01/24/2015 2:01 PM EDT Subject: Need pharmacy changed and prescription sent to new pharmacy [facility] At my Dec. appointment with Mr. Zelaya, he wrote a prescription for my Levothyroxine 88mcg, 90-day supply. I never filled it at [facility] in [place]. I found out that my insurance only does 30-day prescriptions from local retail pharmacies. 90-day prescriptions must go to the [facility] mail-order pharmacy. I'd like a 90-day supply, so please send the prescription (for tablets, not capsules; see below) instead to the mail-order pharmacy, which is [facility], . Thank you. Oh, and one other thing: I was asked by the nurse at my visit if I preferred the Levothyroxinein tablet or capsule form. I said tablet, but the prescription to [facility] was written for capsules. My response to the nurse's question must have been mis-recorded. Please change my preference in your records and correct the prescription when you send it to [facility]. documented in this encounter Plan of Treatment Not on file documented as of this encounter Visit Diagnoses Not on filedocumented in this encounter Care Teams Director Product Relationship Specialty Start Date End Date Steve Mills MD PCP - General Internal Medicine 11/25/14 05/18/15 Name, MD Ramon PCP - General Internal Medicine 05/19/15 08/14/15 Jose Antonio Luevano MD [address] [place] [phone] PCP - General Internal Medicine 08/15/15 documented as of this encounter
--- OUTSIDE RECORDS SUMMARY | 2025-02-09 10:11 | XMS_ITS | Encounter Summary ---
Author Organization [email or web address] Address [address] [place] [address] Care Team Providers Care Pulling Machine Operator Name Role Phone Name, Ramon LAY Primary Care Provider [phone] Encounter Details Date Type Department Care Team (Latest Contact Info) Description 02/09/2025 Travel Social History Tobacco Use Types Packs/Day Years Used Date Smoking Tobacco: Never Passive Smoke Exposure: Never Smokeless Tobacco: Never Alcohol Use Standard Drinks/Week Comments Yes 2 [...] AM EDT documented as of this encounter Plan of Treatment Upcoming Encounters Date Type Department Care Team (Late st Contact Info) Description 05/09/2025 9:00 AM EDT Office Visit [facility] MEDICINE [address] [place] [phone] Name, MD Ramon [address] [place] [phone] documented as of this encounter Visit Diagnoses Not on filedocumented in this encounter Additional Health Concerns Assessment Noted Time PHQ-9 Depression Total Score: 0 03/19/20 24 9:41 AM EDT documented as of this encounter Care Teams Pulling Machine Operator Relationship Specialty Start Date End Date Name, MD Ramon [address] [place] [phone] PCP - General Family Medicine 08/18/21 documented as of this encounter
--- OUTSIDE RECORDS SUMMARY | 2025-02-09 10:11 | XMS_ITS | Encounter Summary ---
Author Organization [facility] Address [address] [place] [address] Care Team Providers Care Resource Development Director Name Role Phone Steve Mills MD Primary Care Provider Unavail able Ramon Cuellar MD Primary Care Provider Jose Antonio Irvin MD Primary Care Provider + [phone] Reason for Visit * Reason Onset Date Comments Provider Call Back 04/25/2015 Encounter Details Date Type Department Care Team Description 04/25/2015 Telephone Adult Medicine [address] [address] Steve Mills MD Provider Call Back Social History Tobacco Use Types Packs/Day Years Used Date Smoking Tobacco: Never Smokeless Tobacco: Never Alcohol Use Standard Drinks/Week Comments Yes 0 (1 standard drink = 0.6 oz pur e alcohol) occ Sex Assigned at Date Recorded Not on file documented as of this encounter Miscellaneous Notes * Telephone Encounter - Charlene Lara L.P.N. - 04/28/2015 8:39 AM EDT Regarding change of PCP He chose Dr Navarro Name ( has called his insurance and changed ) Please change in emr * Telephone Encounter - Latoya Gutierrez M.A. - 04/25/2015 4:54 PM EDT Message left for patient to return my call. * Telephone Encounter - Michael Vazquez - 04/25/2015 9:07 AM EDT Caller requesting call back from provider: Steve Mills Is the caller the patient? YES If caller is not the patient, what is the callers name? N/A Callers relationship to patient? N/A If person calling is not the patient themselves, is there a verbal release in FYI or permanent comments for this person: YES Reason for call back: Patient would like to speak to dr mills or a nurse pertaining to the letter hereceived in the mailing machine operator offered to speak with the nurse for assistance: YES Response: Patient offered to speak with nurse for assistance and patient agreed. Message forwarded to nurse. documented in this encounter Plan of Treatment Not on file documented as of this encounter Visit Diagnoses Not on filedocumented in this encounter Care Teams Resource Development Director Relationship Specialty Start Date End Date Steve Mills MD PCP - General Internal Medicine 11/25/14 05/18/15 NameRamon MD PCP - General Internal Medicine 05/19/15 08/14/15 Jose Antonio Luevano MD [address] [place] [address] PCP - General Internal Medicine 08/15/15 documented as of this encounter
--- OUTSIDE RECORDS SUMMARY | 2025-02-09 10:11 | XMS_ITS | Encounter Summary ---
Author Organization [facility] Address [address] [place] [address] Care Team Providers Care River Pilot Name Role Phone Jose Antonio Luevano MD Primary Care Provider [phone] Encounter Details Date Type Department Care Team Description 04/23/2020 Pt. Non Urgent Medical Question Adult Medicine [address] [address] Jose Antonio Luevano MD [address] [place] [phone] Social History Tobacco Use Types Packs/Day Years [...] on filedocumented in this encounter Care Teams River Pilot Relationship Specialty Start Date End Date Jose Antonio Luevano MD [address] [place] [phone] PCP - General Internal Medicine 08/15/15 documented as of this encounter
--- OUTSIDE RECORDS SUMMARY | 2025-02-09 10:11 | XMS_ITS | Encounter Summary ---
Author Organization [facility] Address [address] [place] [address] Care Team Providers Care Artist'S Manager Name Role Phone Jose Antonio Luevano MD Primary Care Provider + [phone] Encounter Details Date Type Department Care Team Description 06/15/2018 Pt. Non Urgent Medical Question Adult Medicine [address] [phone] Jose Antonio Luevano MD [address] [place] [id number] Social History Tobacco Use Types Packs/Day Years Used Date Smoking Tobacco: Never Smokeless Tobacco: Never Alcohol Use Standard Drinks/Week Comments Yes 0 (1 standard drink = 0.6 oz pur e alcohol) occ Sex Assigned at Date Recorded Not on file documented as of this encounter Progress Notes * Charlene Lara L.P.N. - 06/15/2018 1:35 PM EDTFrom: Misael Roberts To: Jose Antonio Luevano MD Sent: 06/15/2018 1:29 PM EDT Subject: FIT results [id number] again To avoid a problem like last year, Dr. Luevano told me to submit my colon FIT test sample promptlyafter he creates the order, which he did at my February 28 annual physical. I submitted the sample on , but now after almost 3 months there have been no results, just like there were no results last year. documented in this encounter Plan of Treatment Not on file documented as of this encounter Visit Diagnoses Not on filedocumented in this encounter Care Teams Artist'S Manager Relationship Specialty Start Date End Date Jose Antonio Luevano MD [address] [place] [id number] PCP - General Internal Medicine 08/15/15 documented as of this encounter
[2025-02-09 10:38] LABS: MANUAL DIFF FLAG NO
[2025-02-09 11:13] LABS: Basophils Percent Auto 0.1 % (0-2); Eosinophils Absolute Auto 0.1 X10*3/uL (0.0-0.4); Eosinophils Percent Auto 1.3 % (0-4); Hematocrit 44.8 % (42.0-52.0); Hemoglobin 15.3 g/dl (14.0-18.0); Imm Gran Abs Auto 0.01 X10*3/uL (0.00-0.03); Imm Gran Pct Auto 0.1 % (0.0-0.4); Lymphocytes Absolute Auto 1.7 X10*3/uL (1.2-4.9); Lymphocytes Percent Auto 21.7 % (20-40); Mean Corpuscular HGB Conc 34.2 g/dl (31.0-36.0); Mean Corpuscular Hemoglobin 30.9 pg (27.0-33.0); Mean Corpuscular Volume 90.5 fL (80.0-98.0); Mean Platelet Volume 9.6 fL (9.4-12.4); Monocytes Absolute Auto 0.7 X10*3/uL (0.1-1.2); Monocytes Percent Auto 8.3 % (2-11); Neutrophils Absolute Auto 5.3 x10*3/uL (2.0-8.3); Neutrophils Percent Auto 68.5 % (45-73); Platelet Count 196 X10*3/uL (160-400); Red Blood Count 4.95 X10*6/uL (4.60-5.80); Red Cell Distribution Width 12.6 % (11.0-16.0); White Blood Count 7.8 X10*3/uL (4.8-10.8)
[2025-02-09 11:52] LABS: Anion Gap 10 (12-20); Blood Urea Nitrogen 20 mg/dL (9-16); Calcium 9.1 mg/dL (8.4-10.2); Carbon Dioxide 25 mmol/L (22-29); Chloride 109 mmol/L (96-108); Estimated Glomerular Filt Rate > 60; Glucose Random 81 mg/dL (60-115); Potassium 4.4 mmol/L (3.3-5.1); Sodium 140 mmol/L (135-145)
== END 2025-02-09 10:09 | disposition home or self-care (01) ==
LOC: HO.LAB 10:08
PROVIDERS: PCP Internal Medicine Geriatric Medicine; Visit Provider Internal Medicine Geriatric Medicine
DX: R05.9 Cough, unspecified (principal); R00.0 Tachycardia, unspecified; R09.89 Other specified symptoms and signs involving the circulatory and respiratory systems; R53.81 Other malaise
CPT/HCPCS: 36415; 71046; 80048; 84443; 85025

== ENCOUNTER → 2025-02-09 10:39 | Outpatient (BNV) | payer MEDICARE, SELFPAY | PROVIDERS: PCP Internal Medicine Geriatric Medicine; Visit Provider Radiology Diagnostic Radiology | DX: R05.9 Cough, unspecified (principal) | CPT/HCPCS: 71046 ==

== ENCOUNTER 2025-02-28 14:46 | Outpatient (AMB) | payer MEDICARE, SELFPAY ==
--- NOTE | 2025-02-28 14:49 | A.OFFVIS_ITS ---
Vital Signs 02/28/25 14:50 Height 5 ft 6 in Weight 159 lb BMI 25.7 BP 110/78 Blood Pressure Location Lt brachial Position Sitting Pulse 65 Pulse Source Monitor Intake Visit Reasons: new afib episode Allergies No Known Allergies [No Known Allergies*] Allergy (Verified 04/13/23 10:49) Medication List - Last Reconciled 02/28/25 by Julio Benavides NP apixaban 5 mg PO BID atenolol 25 mg PO DAILY 90 days flecainide 50 mg PO Q12H 90 days latanoprost 0.005% 1 drp ophthalmic (eye) BEDTIME levothyroxine (Synthroid) 88 mcg PO DAILY pravastatin 20 mg PO DAILY tamsulosin 0.4 mg PO DAILY zolpidem 5 mg PO BEDTIME PRN HPI Comments Details: This is a 69-year-old male patient presenting for an office visit to evaluate palpitations. He has known history of paroxysmal AFib previously well- controlled on flecainide and atenolol. Due to a low Deepak Vasc score, patient was not on any anticoagulation therapy. Recently, after returning from a trip to [place] where he visited his grandchildren, the patient developed a cold and reported dehydration during flight. He also took some dexamethasone which he suspects may have contributed to his recurrence of AFib. Since then, he has been experiencing frequent palpitations, ECG recordings on his watch and phone showing irregular rhythms and heart rates ranging from 60s to 150s. He reports associated shortness of breath and fatigued during these episodes. Through portal discussion, advised patient to initiate anticoagulation and to increase his atenolol to 25 mg daily which he had done. He however never stopped his flecainide. He is not presenting to discuss further or alternative management options. He denies any exertional chest pain, dizziness, orthopnea, leg edema, presyncope, or syncope. [facility] Surgical History History of circumcision Family History Mother Cancer Father Heart disease S/P triple vessel bypass Diabetes Amputation leg, bilat Paternal Uncle Heart disease Social History Alcohol intake: current Alcohol intake frequency: a few times a month Patient Tobacco Use Status: Never used Tobacco Review of Systems Const Denies weakness ENT Denies dizziness Card Denies chest pain, Denies chest pain with activity, Denies syncope, Denies rapid heart rate, Denies pedal edema, Denies edema, Denies leg edema, Denies lightheadedness, Reports palpitations, Reports dyspnea, Denies dyspnea on exer tion and Denies orthopnea Resp Denies cough, Reports dyspnea and Denies dyspnea on exertion GI Denies hematochezia and Denies change in stool character Musc Denies abnormal gait, Denies muscle cramps, Denies muscle weakness, Denies numbness, Denies radiating pain into limb and Denies tingling Neuro Denies abnormal gait, Denies dizziness, Denies syncope, Denies numbness, Denies tingling and Denies weakness Endo Reports palpitations Physical Exam Vital Signs: Last Vital Signs Pulse 65 02/28/25 14:50 BP 110/78 02/28/25 14:50 BMI result Body Mass Index 25.7 Const General: cooperative, healthy appearing, comfortable and no acute distress Orientation/consciousness: patient oriented x3 HEENT Head: Yes normal to inspection Neck Neck: Yes normal visual inspection, Yes trachea midline and Yes supple Chest Chest palpation & inspection: normal inspection of the chest Resp Effort & Inspection: normal respiratory effort Auscultation: clear to auscultation bilaterally, no crackles, no rales, no rhonchi and no wheezes Cardio Jugular venous distension: no JVD Palpation: normal PMI Rate: regular rate Rhythm: abnormal rhythm regularly irregular Heart sounds: S1 normal heart sound present, S2 normal heart sound present, no click, no gallops, no murmurs and no rubs Peripheral pulses: Peripheral pulses 2+ throughout GI Inspection: Yes normal to inspection Palpation (GI): Soft to palpation Auscultation: normal bowel sounds Skin General skin exam: no rashes or lesions noted Neuro General: patient oriented x3 Extrem General: Yes normal to inspection, No no pedal edema and No calf tenderness Psych Appearance: grossly normal Mental Status: mental status grossly normal Speech and movement: Normal speech and movement present Office Procedures EKG Details: EKG today shows atrial flutter with 4-1 av conduction, rate 65 beats per minute, nonspecific ST [place], [place]. [id number], Complete Assessment & Plan Assessment & Plan (1) Atrial flutter: Code(s): I48.92 - Unspecified atrial flutter Category: Medical Qualifiers: Atrial flutter type: typical Qualified Code(s): I48.3 - Typical atrial flutter Plan: EKG today shows a flutter., which is new. Patient with history of paroxysmal AFib and was previously well-controlled on flecainide and atenolol. Recently submitted rhythm strips via portal confirmed episodes of AFib with high rates in the 140s. Given his ongoing symptoms and rhythm instability, we will stop flecainide therapy. Patient was started on Eliquis about 2 weeks ago and is to continue for full anticoagulation therapy for another 2 weeks before proceeding with c ardioversion. Continue atenolol 25 mg for rate control approach. Patient will start Multaq 1 day prior to cardioversion to stop what rhythm stabilization. We will plan for elective cardioversion in approximately 2 weeks. The procedure, indications, risks, and benefits were discussed with the patient in detail. Patient verbalizes understanding and would like to proceed with this plan. Patient will follow up in the office following cardioversion. In the interim, patient will call the office with any concerns or change in symptoms. This note was generated using voice recognition software. While every effort has been made to ensure accuracy and proper order entry administrator, there may be occasional errors that could affect the content or meaning of the described symptoms. Orders: Orders Cardioversion 2 Weeks I48.92 - Unspecified atrial flutter AMB EKG-In Office Today I48.92 - Unspecified atrial flutter Medications: New dronedarone (Multaq) must administer with a meal/food 400 mg PO BID 60 tabs 2RF Discontinued flecainide Discontinued Reason: Doctor's Order 50 mg PO Q12H 90 days 180 tabs 3RF Coding Level of Care Code Est Pt Level 4 (45586) Complex EM visit Add On G2211 Diagnoses Typical atrial flutter I48.3 Atrial flutter type: typical CPT Codes EKG - CPT: 86645-[id number], Complete ([id number]) Time Spent (min) 35 Comment Time spent in reviewing the chart, test results, assessment, counseling and documentation.
[2025-02-28 14:50] VITALS: BP 110/78; PULSE 65; BMI 25.7
--- OUTSIDE RECORDS SUMMARY | 2025-02-28 16:44 | XMS_ITS | Clinical Summary ---
Author Organization [facility] [employer] Address [address] [place] [address] 7[address] [place] [address] Care Team Providers Care Grain Elevator Man Name Role Phone Name, Ramon LAY Primary Care Provider [phone] Allergies Active Allergy Reactions Criticality Noted Date [...] flecainide (Tambocor) 50 MG tablet 3 Active Eliquis 5 MG tablet 5 Active amoxicillin-clav ulanate (Augmentin) 875-125 MG tabletIndication s:Cough, unspecified type Take 1 tablet by mouth 2 times daily for 5 days. 10 tablet 5 02/15/20 25 azithromycin (Zithromax) 250 MG tabletIndication s:Cough, unspecified type Take 2 tablets (500 mg) by mouth Once per day for 1 day, THEN 1 tablet (250 mg) Once per day for 4 days. 6 tablet 5 02/15/20 25 Active Problems Problem Noted Date Diagnosed Date [...] 12/13/19 15 GERD (gastroesophageal reflux disease) 5 [place]'s disease 12/13/2014 Benign prostatic hyperplasia 12/11/2014 Onychomycosis 12/11/2014 Insomnia 12/11/2014 Hypothyroid 12/11/2014 Tinea pedis 12/11/2014 Arthritis 12/11/2014 Dry eye 10/31/2014 Heartburn 10/31/2012 BPH (benign prostatic hyperplasia) 10/31/2009 Encounters Date Type Department Care Team Description 02/11/2025 Telephone [facility] [address] [place] [phone] Ramon Cuellar MD NTTS (Nurse Telephone Triage Service Patient Call Report - Status Check); Results 02/09/2025 9:20 AM EDT Office Visit [facility] [address] [place] [phone] Ramon Cuellar MD Cough, unspecified type (Primary Dx); Hoarseness of voice; Stuffy and runny nose; Rapid or irregular heartbeat; Paroxysmal atrial fibrillation (CMS/HCC) 02/09/2025 Travel 01/24/2025 Telephone [facility] [address] [place] [phone] Felicia Valdez MA March recalls from Last [...] Description 05/09/2025 9:00 AM EDT Office Visit [facility] [address] [place] [address] Name, MD Ramon [address] [place] [address] Health Maintenance Due Date Last Done Comments [...] Procedure Name Priority Date/Time Associated Diagnosis Comments XR CHEST 2 VIEWS Routine 02/09/2025 10:3 9 AM EDT Cough, unspecified type TSH W/REFLEX TO FT4 Routine 02/09/2025 1 0:36 AM EDT Rapid or irregular heartbeat BASIC METABOLIC PANEL Routine 02/09/2025 10:36 AM EDT Cough, unspecified type CBC WITH AUTO DIFFERENTIAL Routine 02/09/2025 10:36 AM EDT Cough, unspecified type POCT INFLUENZA B (ID NOW RAPID MOLECULAR) [...] Recently Relevant to Health Maintenance Results * XR Chest 2 Views (02/09/2025 10:39 AM EDT) Anatomical Region Laterality Modality Chest Radiographic Emily ging 02/09/2025 10:3 9 AM EDT Narrative 02/11/2025 8:23 AM EDT ? [facility] ?[address] ?[place] [address] ?XRay Report ? Signed ? Patient: Kenedy,Misael ?MR#: [id number] ? : 1955 ?Acct:[id number] ? Age/Sex: 69 / M ?ADM Date: 04/12/25 ? Loc: HO.LAB ? Attending Dr: Ramon Cuellar MD ? Ordering Physician: Ramon Cuellar MD ?? Date of Service: 02/09/25 ?? Procedure(s): XR chest 2V ?? Accession Number(s): [id number] ? cc: Ramon Cuellar MD ? EXAMINATION: ??XR CHEST 2 VIEWS ? HISTORY: 2 weeks of cough and malaise, LLL crackles ? COMPARISON: There are no prior studies for comparison. ? FINDINGS: ??PA and lateral views of the chest are submitted. The lungs ?? are expanded and clear. ??There is no pleural effusion, pneumothorax, or ?? pulmonary vascular congestion. ??The heart is normal in size. ??There is ?? scoliosis and degenerative disc disease of the spine. ? XR/XR chest 2V ?? IMPRESSION: ?? Clear lungs. ? Electronically signed by: ??Ad Quinones MD ??02/11/2025 08:20 AM EDT ? Dictated By: ?Ad Quinones MD ? Signed By: ?<Electronically signed by Ad Quinones MD in OV> ?02/11/25 0820 ? DD/ 1039 ? TD/TT: 02/09/25 1044 ? Pinion Sorter: ? Procedure Note Donyvonnepauloliviater, Image - 02/11/[address] [address] XRay Report Signed Patient: Mandy Roberts#: [id number] : 3Acct:[id number] Age/Sex: 69 / MADM Date: 02/09/25 Loc: HO.LAB Attending Dr: Ramon Cuellar MD Ordering Physician: Ramon Cuellar MD Date of Service: 02/09/25 Procedure(s): XR chest 2V Accession Number(s): [id number] cc: Ramon Cuellar MD EXAMINATION: XR CHEST 2 VIEWS HISTORY: 2 weeks of cough and malaise, LLL crackles COMPARISON: There are no prior studies for comparison. FINDINGS: PA and lateral views of the chest are submitted. The lungs are expanded and clear. There is no pleural effusion, pneumothorax, or pulmonary vascular congestion. The heart is normal in size. There is scoliosis and degenerative disc disease of the spine. XR/XR chest 2V IMPRESSION: Clear lungs. Electronically signed by: Ad Quinones MD 02/11/2025 08:20 AM EDT RP Dictated By: Ad Quinones MD Signed By: <Electronically signed by Ad Quinones MD in OV> 02/11/25 0820 DD/ 1039 TD/TT: 02/09/25 1044 Pinion Sorter: us Ramon Cuellar MD IMG XR PROCEDURES Edited Result - Final * TSH W/Reflex to FT4 (02/09/2025 10:36 AM EDT) Pathologist [facility] TSH reflex Free T4 2.10 0.32 - 4.0 uIU/mL [facility] Blood Venous blood specimen / Unknown 02/09/2025 10:36 AM EDT 02/09/2025 10:36 AM EDT us Ramon Cuellar MD LAB BLOOD ORDERABLES Final Resul t Performing Organization Address City/State/[facility] Co de Phone Number [facility] [address] [place] [phone] * CBC auto differential (02/09/2025 10:36 AM EDT) Pathologist [facility] White Blood Count 7.8 4.8 - 10.8 X10*3/uL [facility] Red Blood Count 4.95 4.60 - 5.80 X10*6/uL [facility] Hemoglobin 15.3 14.0 - 18.0 g/dl [facility] Hematocrit 44.8 42.0 - 52.0 % [facility] Mean Corpuscular Volume 90.5 80.0 - 98.0 fL [facility] Mean Corpuscular Hemoglobin 30.9 27.0 - 33.0 pg [facility] Mean Corpuscular HGB Conc 34.2 31.0 - 36.0 g/dl [facility] Red Cell Distribution Width 12.6 11.0 - 16.0 % [facility] Platelet Count 196 160 - 400 X10*3/uL [facility] Mean Platelet Volume 9.6 9.4 - 12.4 fL [facility] Neutrophils Percent Auto 68.5 45 - 73 % [facility] Imm Gran Pct Auto 0.1 0.0 - 0.4 % [facility] Lymphocytes Percent Auto 21.7 20 - 40 % [facility] Monocytes Percent Auto 8.3 2 - 11 % [facility] Eosinophils Percent Auto 1.3 0 - 4 % [facility] Basophils Percent Auto 0.1 0 - 2 % [facility] NRBC Pct Auto 0.0 0.0 - 0.2 /100WBC [facility] Neutrophils Absolute Auto 5.3 2.0 - 8.3 x10*3/uL [facility] Imm Gran Abs Auto 0.01 0.00 - 0.03 X10*3/uL [facility] Lymphocytes Absolute Auto 1.7 1.2 - 4.9 X10*3/uL [facility] Monocytes Absolute Auto 0.7 0.1 - 1.2 X10*3/uL [facility] Eosinophils Absolute Auto 0.1 0.0 - 0.4 X10*3/uL [facility] Basophils Absolute Auto 0.0 0.0 - 0.2 X10*3/uL [facility] NRBC Abs Auto 0.000 0.0 - 0.012 X10*3/uL [facility] Blood Venous blood specimen / Unknown 02/09/2025 10:36 AM EDT 02/09/2025 10:36 AM EDT us Ramon Name LAB BLOOD ORDERABLES Final Resul t [facility] [address] [place] [phone] [phone] * (ABNORMAL) Basic Metabolic Panel (02/09/2025 10:36 AM EDT) Sodium 140 135 - 145 mmol/L [facility] Potassium 4.4 3.3 - 5.1 mmol/L [facility] Chloride 109(H) 96 - 108 mmol/L [facility] Carbon Dioxide 25 22 - 29 mmol/L [facility] Anion Gap 10(L) 12 - 20 [facility] Urea Nitrogen (BUN) 20(H) 9 - 16 mg/dL [facility] Creatinine, Serum 1.11 0.5 - 1.4 mg/dL [facility] Estimated Glomerular Filt Rate >60 [facility] Comment:Chronic Kidney Disea se: Estimated GFR < 60 mL/min/1.71z4Etxqbw Kidney Disease: Estimated GFR < 15 mL/min/1.73m2 Glucose 81 60 - 115 mg/dL [facility] Calcium 9.1 8.4 - 10.2 mg/dL [facility] Blood Venous blood specimen / Unknown 02/09/2025 10:36 AM EDT 02/09/2025 10:36 AM EDT us Ramon Cuellar MD LAB BLOOD ORDERABLES Final Resul t Performing Organization Address City/[facility]/ZIP Co de Phone Number [facility] [address] [place] [phone] * POCT Rapid Influenza B MARTÍNEZ ID NOW (02/09/2025 9:54 AM EDT) Pathologist [facility] Influenza B Negative Negative, Indeterminate [facility] QC Media Lot # [id number] [facility] Lot# Expiration Date [facility] Swab 02/09/2025 9:54 AM EDT us Ramon Cuellar MD POINT OF CARE TEST ENTER/EDIT OR DERABLES Final Result Performing Organization Address City/[facility]/ZIP Co de Phone Number [facility] [address] [place] [phone] * POCT Rapid Influenza A MARTÍNEZ ID NOW (02/09/2025 9:54 AM EDT) Influenza A Negative Negative, Indeterminate [facility] QC Media Lot # [id number] [facility] Lot# Expiration Date [facility] Swab 02/09/2025 9:54 AM EDT us Navarro Name POINT OF CARE TEST ENTER/EDIT OR DERABLES Final Result [facility] [address] [place] [address] [phone] * POCT Rapid Covid-19 MARTÍNEZ ID NOW (02/09/2025 9:53 AM EDT) Coronavirus Antigen PCR Negative Negative, Indeterminate, None Detected, Invalid, Specimen unsatisfactory for evaluation, Weakly Positive QC Media Lot # [id number] Lot# Expiration Date Swab 02/09/2025 9:53 AM EDT us Navarro Name POINT OF CARE TEST ENTER/EDIT OR DERABLES Final Result * Lipid Panel, Standard (10/29/2024 8:23 AM EST) Triglycerides 45 <150 mg/dL [facility] Comment:Desirable Triglyceri de: less than 150 mg/dLBorderline High Triglyceride 150-199 mg/dLHigh Triglyceride: 200-499 mg/dLVery High Triglyceride: greater than or equal to 5OO mg/dL Cholesterol 147 <200 mg/dL [facility] Comment:Desirable Cholestero l: less than 200 mg/dLBorderline High Cholesterol: 200-239 mg/dLHigh Cholesterol: greater than 239 mg/dL LDL Cholesterol Calculated 61 <100 mg/dL [facility] Comment:Desirable LDL: less than 100 mg/dLNear Optimal/Above Optimal LDL: 110- 129 mg/dLBorderline High LDL: 130-159 mg/dLHigh LDL: 160-189 mg/dLVery High LDL: greater than or equal to 190 mg/dL HDL Cholesterol 77 >40 mg/dL [facility] Comment:Desirable HDL: great er than 40 mg/dL Note: This HDL assay may give artificially low results in patients with liver disease. Blood Venous blood specimen / Unknown 10/29/2024 8:23 AM EST 10/29/2024 8:26 AM EST Ramon Cuellar MD LAB BLOOD ORDERABLES Final Resul t [facility] [address] [place] [phone] [phone] * FIT DNA/Cologuard Cancer Screening (03/12/2022) Cologuard Cancer Screen Negative Comment:Negative F/U in 3 ye ars Stool Ramon Cuellar MD HEALTH MAINTENANCE Final Result from Last 3 Months or Most Recently Relevant to Health Maintenance Insurance [employer] [place] [employer] PPO Care Teams Grain Elevator Man Relationship Specialty Start Date End Date Name, MD Ramon [address] [place] [phone] PCP - General Family Medicine 08/18/21
== END 2025-02-28 15:33 | disposition home or self-care (01) ==
LOC: HO.HCS 14:46
PROVIDERS: PCP Internal Medicine Geriatric Medicine
DX: I48.3 Typical atrial flutter (principal)
CPT/HCPCS: 93010; 99214; G2211

== ENCOUNTER → 2025-02-28 14:46 | Outpatient (BNVA) | payer MEDICARE, SELFPAY | PROVIDERS: PCP Internal Medicine Geriatric Medicine | DX: I48.3 Typical atrial flutter (principal) | CPT/HCPCS: 93005; 99212 ==

== ENCOUNTER 2025-03-21 10:46 | Day surgery (SDC) | payer MEDICARE, SELFPAY ==
--- OUTSIDE RECORDS SUMMARY | 2025-03-05 10:27 | XMS_ITS | Clinical Summary ---
Author Organization [employer] Address [address] [facility] [address]t [place] [address] Care Team Providers Care Nut Blanker Operator Name Role Phone Name, Ramon LAY Primary Care Provider [phone] Allergies Active Allergy Reactions Criticality Noted Date [...] per day for 4 days. 6 tablet 04/1202/15/20 25 Active Problems Problem Noted Date Diagnosed [...] 12/13/19 15 GERD (gastroesophageal reflux disease) 5 [place]'s disease 12/13/2014 Benign prostatic hyperplasia 12/11/2014 Onychomycosis 12/11/2014 Insomnia 12/11/2014 Hypothyroid 12/11/2014 Tinea pedis 12/11/2014 Arthritis 12/11/2014 Dry eye 10/31/2014 Heartburn 10/31/2012 BPH (benign prostatic hyperplasia) 10/31/2009 Encounters Date Type Department Care Team Description 02/11/2025 Telephone [facility] [address] [place] [phone] Ramon Cuellar MD NTTS (Nurse Telephone Triage Service Patient Call Report - Status Check); Results 02/09/2025 9:20 AM EDT Office Visit [facility] [address] [place] [phone] Ramon Cuellar MD Cough, unspecified type (Primary Dx); Hoarseness of voice; Stuffy and runny nose; Rapid or irregular heartbeat; Paroxysmal atrial fibrillation (CMS/HCC) 02/09/2025 Travel 01/24/2025 Telephone [facility] [address] [place] [phone] Felicia Valdez [place] March recalls from Last [...] preservative free 08/21/2015 Moderna Covid-19 Vaccine 12+ 03/04/2022,09/25/20,09/15/2021 Moderna Covid-19 Vaccine 6+ Bivalent 02/17/2023, 07/07/2022 [...] Description 05/09/2025 9:00 AM EDT Office Visit [facility] [address] [place] [address] Name, MD Ramon [address] [place] [address] Health Maintenance Due Date Last Done Comments [...] EDT Narrative 02/11/2025 8:23 AM EDT ? [facility] ?[address] ?[place] [address] ?XRay Report ? Signed ? Patient: Armando,Misael ?MR#: [id number] ? : 1955 ?Acct:[id number] ? Age/Sex: 69 / M ?ADM Date: 04/12/25 ? Loc: HO.LAB ? Attending Dr: Ramon Cuellar MD ? Ordering Physician: Ramon Cuellar MD ?? Date of Service: 02/09/25 ?? Procedure(s): XR chest 2V ?? Accession Number(s): [id number] ? cc: Ramon Cuellar MD ? EXAMINATION: [...] DD/ 1039 ? TD/TT: 02/09/25 1044 ? Senior Compensation Consultant: ? Procedure Note Tye, Alex - 02/11/[address] [address] XRay Report Signed Patient: Mandy Roberts#: [id number] : 1955cct:[id number] Age/Sex: 69 / MADM Date: 02/09/25 Loc: HO.LAB Attending Dr: Ramon Cuellar MD Ordering Physician: Ramon Cuellar MD Date of Service: 02/09/25 Procedure(s): XR chest 2V Accession Number(s): [id number] cc: Ramon Cuellar MD EXAMINATION: XR CHEST [...] 02/11/25 0820 DD/ 1039 TD/TT: 02/09/25 1044 Senior Compensation Consultant: us Ramon Cuellar MD IMG XR PROCEDURES Edited Result - Final * TSH W/Reflex to FT4 (02/09/2025 10:36 AM EDT) TSH reflex Free T4 2.10 0.32 - 4.0 uIU/mL [facility] Blood Venous blood specimen / Unknown 02/09/2025 10:36 AM EDT 02/09/2025 10:36 AM EDT us Ramon Cuellar MD LAB BLOOD ORDERABLES Final Resul t Performing Organization Address City/State/[facility] Co de Phone Number [facility] [address] [place] [phone] * CBC auto differential (02/09/2025 10:36 AM EDT) White Blood Count 7.8 4.8 - 10.8 X10*3/uL [facility] Red Blood Count 4.95 4.60 - 5.80 X10*6/uL [facility] Hemoglobin 15.3 14.0 - 18.0 g/dl [facility] Hematocrit 44.8 42.0 - 52.0 % [facility] Mean Corpuscular Volume 90.5 80.0 - 98.0 fL [facility] Mean Corpuscular Hemoglobin 30.9 27.0 - 33.0 pg [facility] Mean Corpuscular HGB Conc 34.2 31.0 - 36.0 g/dl [facility] Red Cell Distribution Width 12.6 11.0 - 16.0 % [facility] Platelet Count 196 160 - 400 X10*3/uL [facility] Mean Platelet Volume 9.6 9.4 - 12.4 fL [facility] Neutrophils Percent Auto 68.5 45 - 73 % [facility] Imm Gran Pct Auto 0.1 0.0 - 0.4 % [facility] Lymphocytes Percent Auto 21.7 20 - 40 % [facility] Monocytes Percent Auto 8.3 2 - 11 % [facility] Eosinophils Percent Auto 1.3 0 - 4 % [facility] Basophils Percent Auto 0.1 0 - 2 % [facility] NRBC Pct Auto 0.0 0.0 - 0.2 /100WBC [facility] Neutrophils Absolute Auto 5.3 2.0 - 8.3 x10*3/uL [facility] Imm Gran Abs Auto 0.01 0.00 - 0.03 X10*3/uL [facility] Lymphocytes Absolute Auto 1.7 1.2 - 4.9 X10*3/uL [facility] Monocytes Absolute Auto 0.7 0.1 - 1.2 X10*3/uL [facility] Eosinophils Absolute Auto 0.1 0.0 - 0.4 X10*3/uL [facility] Basophils Absolute Auto 0.0 0.0 - 0.2 X10*3/uL [facility] NRBC Abs Auto 0.000 0.0 - 0.012 X10*3/uL [facility] Blood Venous blood specimen / Unknown 02/09/2025 10:36 AM EDT 02/09/2025 10:36 AM EDT us Ramon Name LAB BLOOD ORDERABLES Final Resul t [facility] [address] [place] [phone] [phone] * (ABNORMAL) Basic Metabolic Panel (02/09/2025 10:36 AM EDT) Sodium 140 135 - 145 mmol/L [facility] Potassium 4.4 3.3 - 5.1 mmol/L [facility] Chloride 109(H) 96 - 108 mmol/L [facility] Carbon Dioxide 25 22 - 29 mmol/L [facility] Anion Gap 10(L) 12 - 20 [facility] Urea Nitrogen (BUN) 20(H) 9 - 16 mg/dL [facility] Creatinine, Serum 1.11 0.5 - 1.4 mg/dL [facility] Estimated Glomerular Filt Rate >60 [facility] Comment:Chronic Kidney Disea se: Estimated GFR < 60 mL/min/1.74c5Agzyjn Kidney Disease: Estimated GFR < 15 mL/min/1.73m2 Glucose 81 60 - 115 mg/dL [facility] Calcium 9.1 8.4 - 10.2 mg/dL [facility] Blood Venous blood specimen / Unknown 02/09/2025 10:36 AM EDT 02/09/2025 10:36 AM EDT us Ramon Cuellar MD LAB BLOOD ORDERABLES Final Resul t Performing Organization Address City/[facility]/ZIP Co de Phone Number [facility] [address] [place] [phone] * POCT Rapid Influenza B MARTÍNEZ ID NOW (02/09/2025 9:54 AM EDT) Influenza B Negative Negative, Indeterminate [facility] QC Media Lot # [id number] [facility] Lot# Expiration Date [facility] Swab 02/09/2025 9:54 AM EDT us Ramon Cuellar MD POINT OF CARE TEST ENTER/EDIT OR DERABLES Final Result Performing Organization Address City/[facility]/ZIP Co de Phone Number [facility] [address] [place] [address] [phone] * POCT Rapid Influenza A MARTÍNEZ ID NOW (02/09/2025 9:54 AM EDT) Influenza A Negative Negative, Indeterminate [facility] QC Media Lot # [id number] [facility] Lot# Expiration Date [facility] Swab 02/09/2025 9:54 AM EDT us Ramon Cuellar MD POINT OF CARE TEST ENTER/EDIT OR DERABLES Final Result [facility] [address] [place] [phone] * POCT Rapid Covid-19 MARTÍNEZ ID NOW (02/09/2025 9:53 AM EDT) Coronavirus Antigen PCR Negative Negative, Indeterminate, None Detected, Invalid, Specimen unsatisfactory for evaluation, Weakly Positive QC Media Lot # [id number] Lot# Expiration Date Swab 02/09/2025 9:53 AM EDT us Ramon Cuellar MD POINT OF CARE TEST ENTER/EDIT OR DERABLES Final Result * Lipid Panel, Standard (10/29/2024 8:23 AM EST) Triglycerides 45 <150 mg/dL [facility] Comment:Desirable Triglyceri de: less than 150 mg/dLBorderline High Triglyceride 150-199 mg/dLHigh Triglyceride: 200-499 mg/dLVery High Triglyceride: greater than or equal to 5OO mg/dL Cholesterol 147 <200 mg/dL [facility] Comment:Desirable Cholestero l: less than 200 mg/dLBorderline High Cholesterol: 200-239 mg/dLHigh Cholesterol: greater than 239 mg/dL LDL Cholesterol Calculated 61 <100 mg/dL [facility] Comment:Desirable LDL: less than 100 mg/dLNear Optimal/Above Optimal LDL: 110- 129 mg/dLBorderline High LDL: 130-159 mg/dLHigh LDL: 160-189 mg/dLVery High LDL: greater than or equal to 190 mg/dL HDL Cholesterol 77 >40 mg/dL [facility] Comment:Desirable HDL: great er than 40 mg/dL Note: This HDL assay may give artificially low results in patients with liver disease. Blood Venous blood specimen / Unknown 10/29/2024 8:23 AM EST 10/29/2024 8:26 AM EST us Ramon Cuellar MD LAB BLOOD ORDERABLES Final Resul t [facility] [address] [place] [phone] * FIT DNA/Cologuard Cancer Screening (03/12/2022) Cologuard Cancer Screen Negative Comment:Negative F/U in 3 ye ars Stool us Ramon Cuellar MD HEALTH MAINTENANCE Final Result from Last 3 Months or Most Recently Relevant to Health Maintenance Insurance [employer] PPO Care Teams Nut Blanker Operator Relationship Specialty Start Date End Date Name, MD Ramon [address] [place] [phone] PCP - General Family Medicine 08/18/21
[2025-03-19 14:20] VITALS: BMI 25.7
--- NOTE | 2025-03-19 15:08 | P.CONAN_ITS ---
Documented by User: Valorie Esteban NP 03/19/25 15:11 HPI - Anesthesia Eval Consult details Narrative: 70yo M for Cardioversion Eliquis for afib PMFSH Active Problems Active Problems: All Active Problems Atrial flutter (Acute) PAF (paroxysmal atrial fibrillation) (Acute) Past Medical History Medical History Thyroid disease PAF (paroxysmal atrial fibrillation) Family History Family History Mother Cancer Father Heart disease S/P triple vessel bypass Diabetes Amputation leg, bilat Paternal Uncle Heart disease Surgical History Surgical History History of circumcision Social History Social History Are you a primary home care manager rn to a significant other at home: No Do you presently have visiting nurse or other home services: No Alcohol intake: current Alcohol intake frequency: does not drink Patient Tobacco Use Status: Never used Tobacco Second Hand Smoke Exposure: No Use of substances other than those prescribed or required for medical reasons: No Have you been hit, kicked, punched, or otherwise hurt by someone within the past year? If so, by whom?: No Are you DNR?: No Advance Directives: No Advance Directives Information Provided: Yes Advance Directives on File: No Poor oral hygiene: No Meds Allergies Allergy/AdvReac Type Severity Reaction Status Date / Time No Known Allergies Allergy Verified 04/13/23 10:49 [No Known Allergies*] Home Medications ?Medication ?Instructions ?Recorded ?Confirmed ?Last Taken ?Type latanoprost 0.005 % eye drops 1 drp ophthalmic (eye) BEDTIME 04/13/23 03/21/25 03/20/25 History levothyroxine 88 mcg tablet 88 mcg PO DAILY 04/13/23 03/21/25 03/21/25 History (Synthroid) tamsulosin 0.4 mg capsule 0.4 mg PO DAILY 04/13/23 03/21/25 03/20/25 History zolpidem 5 mg tablet 5 mg PO BEDTIME PRN Sleep 04/13/23 03/21/25 Unknown History pravastatin 20 mg tablet 20 mg PO DAILY 08/17/23 03/21/25 03/20/25 History Exam Height,Weight and Vital Signs: Height 5 ft 6 in Weight 72.121 kg Pertinent Lab Results Pertinent Lab Results: Laboratory Tests 02/09/25 10:36 WBC 7.8 Hgb 15.3 Hct 44.8 Plt Count 196 Sodium 140 Potassium 4.4 Chloride 109 H Carbon Dioxide 25 BUN 20 H Creatinine 1.11 Narrative Narrative: EKG 02/2025 Details: EKG today shows atrial flutter with 4-1 av conduction, rate 65 beats per minute, nonspecific ST waves, corrected QT. ECHO 2022 Conclusions: - 1. Normal LV systolic function 2. Trivial aortic regurgitation 3. Normal RV systolic pressure 4. Upper limits of normal ascending aortic size 5. No pericardial effusion Exercise Stress Protocol: REN Max HR: 155 BPM 103% of Pred: 150 BPM Max BP: 160/084 mmHG Max Work Load: 9.5 METS Exercise stress test exercise 7 min 40 sec of Ren protocol achieivng 102% MPHR, with mild SOB, no chest discomfort, with frequent isolated PVCs and short NSVT runs noted during stage 3, longest 7 beats, without EKG changes meeting criteria for ischemia. Test reviewed with Mayito. Assessment and Plan Assessment Anesthesia Assessment: Chart Reviewed Documented by User: Alexia Sandy MD 03/21/25 13:01 [facility] Past Medical History Medical History Thyroid disease PAF (paroxysmal atrial fibrillation) Family History Family History Mother Cancer Father Heart disease S/P triple vessel bypass Diabetes Amputation leg, bilat Paternal Uncle Heart disease Family history of problems with anesthesia: No Surgical History Surgical History History of circumcision History of Problems with Anesthesia: No Social History Social History Are you a primary home care manager rn to a significant other at home: No Do you presently have visiting nurse or other home services: No Alcohol intake: current Alcohol intake frequency: does not drink Patient Tobacco Use Status: Never used Tobacco Second Hand Smoke Exposure: No Use of substances other than those prescribed or required for medical reasons: No Have you been hit, kicked, punched, or otherwise hurt by someone within the past year? If so, by whom?: No Are you DNR?: No Advance Directives: No Advance Directives Information Provided: Yes Advance Directives on File: No Poor oral hygiene: No Meds Allergies Allergy/AdvReac Type Severity Reaction Status Date / Time No Known Allergies Allergy Verified 04/13/23 10:49 [No Known Allergies*] Home Medications ?Medication ?Instructions ?Recorded ?Confirmed ?Last Taken ?Type latanoprost 0.005 % eye drops 1 drp ophthalmic (eye) BEDTIME 04/13/23 03/21/25 03/20/25 History levothyroxine 88 mcg tablet 88 mcg PO DAILY 04/13/23 03/21/25 03/21/25 History (Synthroid) tamsulosin 0.4 mg capsule 0.4 mg PO DAILY 04/13/23 03/21/25 03/20/25 History zolpidem 5 mg tablet 5 mg PO BEDTIME PRN Sleep 04/13/23 03/21/25 Unknown History pravastatin 20 mg tablet 20 mg PO DAILY 08/17/23 03/21/25 03/20/25 History Exam Airway Mallampati Class: II TM Dist: >3cm Neck ROM: Full Heart: afib Lungs: cta Assessment and Plan Assessment Anesthesia Assessment: Anesthesia Plan Discussed Final Anesthetic Review Family History of Problems with Anesthesia: No History of Problems with Anesthesia: No NPO: Yes ASA Class: III Final Preanesthetic Review: No Changes in Pt Med Stat, Meds/Allgs Chart Reviewed, Consent Obtained/Reviewed and Anes Risks/Benef Reviewed Patient Risk: Intermediate Procedure Risk: Low Anesthetic Plan Anesthetic Plan: MAC: Disposition: Standard PACU
[2025-03-21] VITALS (7 sets, daily range): BP systolic 101–128; BP diastolic 67–87; PULSE 55–74; RESP 16–18; TEMP 36.1–36.6; O2SAT 97–99; BMI 27.1
--- NOTE | 2025-03-21 | ECG_ITS ---
Test Reason : post cardioversion Blood Pressure : */* mmHG Vent. Rate : 58 BPM Atrial Rate : 58 BPM P-R Int : 222 ms QRS Dur : 92 ms QT Int : 420 ms P-R-T Axes : 50 -30 19 degrees QTcB Int : 412 ms Sinus bradycardia with 1st degree A-V block Left axis deviation Low voltage QRS Abnormal ECG No previous ECGs available Referred By: Jose Juan Lemus Electronically Signed By: Jose Juan Lemus
[2025-03-21] MEDS: Lactated Ringers 1,000 ML 100 ML IVCONT (11:16)
--- NOTE | 2025-03-21 13:25 | MHC.SHP ---
Pre-Procedural Eval Section A - 24 Hr Update-Section A only Date of Service: 03/21/25 The patient is an INPATIENT: No Section B - Complete if H&P > 30 days Chief Complaint: Unspecified atrial flutter Allergies: Allergies Allergy/AdvReac Type Severity Reaction Status Date / Time No Known Allergies Allergy Verified 04/13/23 10:49 [No Known Allergies*] Plan Diagnosis/Plan: Unchanged I have reviewed the history and physical and performed a pertinent physical examination on my patient. No changes have occurred unless specified. Time Spent With Patient Time: Total time managing care of this patient today ____ minutes.
--- NOTE | 2025-03-21 14:07 | HO.CARDIVERS ---
Cardioversion Procedure Note Cardioversion Date of Procedure: 03/21/2025 Ordering Provider: Jose Juan Lemus Performing Provider: Jose Juan Lemus Indication for Procedure: Atrial flutter and dyspnea on exertion. Performed with Transesophageal Echo: No Consent: Verbal and Written consent was obtained from the patient before starting. The patient was made aware of the risk of stroke, arrhythmia, failure to achieve sinus rhythm, skin irritation. Procedure: After consent obtained, defib pads were attached and the patient was sedated by the anesthesia team. Once adequate sedation achieved, single synchronized shock of 150 joules was given to the patient and he converted to sinus rhythm. This was documented on EKG. Complications: None. Recommendations: Stop atenolol. Start taking Multaq 400 mg twice a day.
== END 2025-03-21 14:50 | disposition home or self-care (01) ==
PROVIDERS: PCP Internal Medicine Geriatric Medicine; Visit Provider Internal Medicine Cardiovascular Disease
PROC: 5A2204Z Restoration of Cardiac Rhythm, Single (ICD-10-PCS; principal; 2025-03-21 13:00)
DX: I48.3 Typical atrial flutter (principal); R06.00 Dyspnea, unspecified; Z79.01 Long term (current) use of anticoagulants; Z79.899 Other long term (current) drug therapy
CPT/HCPCS: 92960; 93005; J1596; J2003; J2704

== ENCOUNTER → 2025-03-21 10:46 | Outpatient (BNV) | payer MEDICARE, SELFPAY | PROVIDERS: PCP Internal Medicine Geriatric Medicine; Visit Provider Internal Medicine Cardiovascular Disease | DX: I48.92 Unspecified atrial flutter (principal) | CPT/HCPCS: 92960 ==

== ENCOUNTER 2025-04-01 15:31 | Outpatient (AMB) | payer MEDICARE, SELFPAY ==
--- NOTE | 2025-04-01 15:50 | A.OFFVIS_ITS ---
Vital Signs 04/01/25 15:51 Height 5 ft 6 in Weight 167 lb 15.876 oz BMI 27.1 BP 120/62 Blood Pressure Location Lt brachial Position Sitting Pulse 61 Pulse Source Monitor Intake Visit Reasons: Cardioversion follow-up Intake Note: f/up-cardioversion Injector Assembler Required: No Accompanied by: Self / Same As Patient Allergies No Known Allergies [No Known Allergies*] Allergy (Verified 04/13/23 10:49) Medication List - Last Reconciled 04/01/25 by Jose Juan Lemus MD apixaban 5 mg PO BID dronedarone (Multaq) 400 mg PO BID latanoprost 0.005% 1 drp ophthalmic (eye) BEDTIME levothyroxine (Synthroid) 88 mcg PO DAILY pravastatin 20 mg PO DAILY tamsulosin 0.4 mg PO DAILY zolpidem 5 mg PO BEDTIME PRN HPI Comments Details: [age] year gentleman who is here for follow-up. He previously had atrial fibrillation and was cardioverted. He was started on flecainide and metoprolol. He could not tolerate the metoprolol and eventually was changed to atenolol. Subsequently was noticed to be bradycardic and eventually got off the flecainide and was taking atenolol only along with Eliquis. He was seen in the office again and was noted to be in atrial flutter. He was complaining of dyspnea. After discussion he was taken for cardioversion and was taken off the atenolol and started on Multaq. Since then he has been in sinus rhythm. He has been feeling better and is back to his normal self. Taking Eliquis regularly. [facility] Medical History Thyroid disease PAF (paroxysmal atrial fibrillation) Surgical History History of circumcision Family History Mother Cancer Father Heart disease S/P triple vessel bypass Diabetes Amputation leg, bilat Paternal Uncle Heart disease Social History Are you a primary home care music therapist to a significant other at home: No Do you presently have visiting nurse or other home services: No Alcohol intake: current Alcohol intake frequency: does not drink Patient Tobacco Use Status: Never used Tobacco Second Hand Smoke Exposure: No Review of Systems Const Denies chills, Denies fatigue, Denies fever(s), Denies frequent falls, Denies weakness, Denies weight gain and Denies weight loss ENT Denies dizziness Card Denies chest pain, Denies leg edema, Denies lightheadedness, Denies palpitations, Denies dyspnea and Denies dyspnea on exertion Resp Denies cough, Denies dyspnea and Denies dyspnea on exertion GI Denies hematochezia Musc Denies abnormal gait, Denies muscle weakness, Denies numbness, Denies radiating pain into limb and Denies tingling Neuro Denies abnormal gait, Denies dizziness, Denies frequent falls, Denies numbness, Denies tingling and Denies weakness Endo Denies fatigue and Denies palpitations Physical Exam Vital Signs: Last Vital Signs Pulse 61 04/01/25 15:51 BP 120/62 04/01/25 15:51 BMI result Body Mass Index 27.1 GENERAL APPEARANCE: in no acute distress, pleasant. NECK: no carotid bruit, no jugular venous distention. SKIN: no suspicious lesions, warm and dry. HEART: no murmurs, regular rate and rhythm. LUNGS: clear to auscultation bilaterally. ABDOMEN: soft, nontender. EXTREMITIES: no edema. PERIPHERAL PULSES: equal. NEUROLOGIC: No gross deficits, AAO X 3 Office Procedures EKG Details: Sinus rhythm 61 beats per minute, normal axis, normal ECG, QTC 438 milliseconds. [id number], Complete Assessment & Plan Assessment & Plan (1) Atrial flutter: Code(s): I48.92 - Unspecified atrial flutter Category: Medical Qualifiers: Atrial flutter type: typical Qualified Code(s): I48.3 - Typical atrial flutter Plan Pleasant 70 year gentleman who has background history of atrial fibrillation and atrial flutter. He initially was cardioverted for atrial fibrillation and was started on flecainide but could not tolerate it. He developed atrial flutter later on and was cardioverted again recently and started on Multaq. He has been tolerating Multaq much better. Continue Multaq and Eliquis at this stage. Overall clinically stable. We discussed about ablation and he will think about it. Currently strategy will be Kyle and Carlton. Thank you for allowing me to participate in the care of your patient. Please feel free to contact me if you have any questions. Coding Level of Care Code Est Pt Level 4 (60927) Diagnoses Typical atrial flutter I48.3 Atrial flutter type: typical CPT Codes EKG - CPT: 48576-[id number], Complete ([id number])
[2025-04-01 15:51] VITALS: BP 120/62; PULSE 61; BMI 27.1
--- OUTSIDE RECORDS SUMMARY | 2025-04-01 16:43 | XMS_ITS | Encounter Summary ---
Author Organization [facility] Address [facility] [place] [address] Care Team Providers Care Money Examiner Name Role Phone Jose Antonio Luevano MD Primary Care Provider + [phone] Encounter Details Date Type Department Care Team Description 08/08/2019 Hospital Medical Records [address] [place] [address] Bill Siddiqi MD [address] [place] [id number] Social History Tobacco Use Types Packs/Day Years [...] on filedocumented in this encounter Care Teams Money Examiner Relationship Specialty Start Date End Date Jose Antonio Luevano MD [address] [place] [address] PCP - General Internal Medicine 08/15/15 documented as of this encounter
== END 2025-04-01 16:26 | disposition home or self-care (01) ==
LOC: HO.HCS 15:32
PROVIDERS: PCP Internal Medicine Geriatric Medicine; Visit Provider Internal Medicine Cardiovascular Disease
DX: I48.3 Typical atrial flutter (principal)
CPT/HCPCS: 99214

== ENCOUNTER → 2025-04-01 15:31 | Outpatient (BNVA) | payer MEDICARE, SELFPAY | PROVIDERS: PCP Internal Medicine Geriatric Medicine; Visit Provider Internal Medicine Cardiovascular Disease | DX: I48.3 Typical atrial flutter (principal) | CPT/HCPCS: 93005; 99212 ==

== ENCOUNTER 2025-05-09 09:59 | Outpatient (REF) | payer MEDICARE, SELFPAY ==
[2025-05-09 10:27] LABS: MANUAL DIFF FLAG NO
--- OUTSIDE RECORDS SUMMARY | 2025-05-09 10:37 | XMS_ITS | Clinical Summary ---
Author Organization [employer] Address [address] [facility] [address] [place] [address] Care Team Providers Care Stone Paver Name Role Phone Name, Ramon LAY Primary Care Provider [phone] Allergies Active Allergy Reactions Criticality Noted Date Comments Other 10/31/2011 Medications latanoprost (Xalatan) 0.005 % ophthalmic solution Administer 1 drop into both eyes at bedtime. 3 Active zolpidem (Ambien) 5 MG tablet TAKE 1 TABLET BY MOUTH EVERYDAY AT BEDTIME 30 tablet 2 3 Active pravastatin (Pravachol) 20 MG tablet TAKE 1 TABLET EVERY MORNING 90 tablet 2 4 Active levothyroxine (Synthroid) 88 MCG tabletIndicatio ns:Hypothyroidi sm, unspecified type TAKE 1 TABLET BY MOUTH DAILY 90 tablet 2 4 Active Eliquis 5 MG tablet 5 Active tamsulosin (Flomax) 0.4 MG 24 hr capsule TAKE 1 CAPSULE BY MOUTH EVERY DAY 90 capsule 1 5 Active dronedarone (Multaq) 400 MG tablet 5 Active atenolol (Tenormin) 25 MG tablet Take 0.5 tablets (12.5 mg) by mouth Once per day. 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 Benign prostatic hyperplasia 12/11/2014 Onychomycosis 12/11/2014 Insomnia 12/11/2014 Hypothyroid 12/11/2014 Tinea pedis 12/11/2014 Arthritis 12/11/2014 Dry eye 10/31/2014 Heartburn 10/31/2012 BPH (benign prostatic hyperplasia) 10/31/2009 Encounters Date Type Department Care Team Description 05/09/2025 9:00 AM EDT Office Visit [facility] [address] [place] [phone] Ramon Cuellar MD Paroxysmal atrial fibrillation (CMS/HCC) (Primary Dx); VILLATORO (dyspnea on exertion); Benign prostatic hyperplasia with nocturia; Hypothyroidism, unspecified type; Encounter for screening for malignant neoplasm of colon 05/09/2025 Travel 05/08/2025 Telephone [facility] [address] [place] [address] Felicia Valdez MA chart prep 05/08/2025 Travel 03/22/2025 Refill [facility] [address] [place], [place] [phone] Ramon Cuellar MD 03/22/2025 Refill [facility] [address] [place] [address] Ramon Cuellar MD 02/11/2025 Telephone [facility] [address] [place] [address] Ramon Cuellar MD NTTS (Nurse Telephone Triage Service Patient Call Report - Status Check); Results 02/09/2025 9:20 AM EDT Office Visit [facility] [address] [address] Name, MD Ramon Cough, unspecified type (Primary Dx); Hoarseness of voice; Stuffy and runny nose; Rapid or irregular heartbeat; Paroxysmal atrial fibrillation (CMS/HCC) 02/09/2025 Travel from Last 3 Months Immunizations Immunization Administration Dates Next Due Hep A, Adult [...] Answer Date Recorded Patient Health Questionnaire-9 Score 4 05/09/2025 Patient Health Questionnaire-9 Score 4 05/09/2025 Last PHQ-9: Questionnaire Data Not on file 0 05/09/2025 Housing Stability Answer Date Recorded What is your housing situation today? I have berny emmanuel 05/09/[address] you li ve. Do you have problems with any of the following? None of the above 05/09/2025 Food Insecurity Answer Date Recorded Within the past 12 months, y ou worried that your food would run out before you got money to buy more: Never True 05/09/2025 Within the past 12 months,th e food you bought just didn't last and you didn't have enough money to get more: Never True 07/2025 Transportation Answer Date Recorded In the past 12 months, has l ack of transportation kept you from medical appts, meetings, work or from getting things needed for daily living? No 05/09/2025 Utilities Answer Date Recorded In the past 12 months, has t he electric, gas, oil or water company threatened to shut off services in your home? No 05/09/2025 Depression Answer Date Recorded Patient Health Questionnaire-2 Score 0 05/09/2025 Internet Access Answer Date Recorded Internet Access Q1 Yes 05/09/2025 Internet Access Q2 Not on file 05/09/2025 Sex and Gender Information Value Date Recorded Sex Assigned at Male 08/30/2022 10:36 AM EDT Legal Sex Male 10:36 AM EDT Gender Identity Male 08/30/2022 10:36 AM EDT Sexual Orientation Straight 08/30/2022 10 :36 AM EDT Last Filed Vital Signs Vital Sign Reading Time Taken Comments Blood Pressure 100/80 05/09/2025 9:09 AM EDT Pulse 63 05/09/2025 9:09 AM EDT Temperature 36.7 C (98.1 F) 05/09/2025 9:09 AM EDT Respiratory Rate 16 05/09/2025 9:09 AM EDT Oxygen Saturation 98% 05/09/2025 9:09 AM EDT Inhaled Oxygen Concentration - - Weight 76.7 kg (169 lb) 05/09/2025 9:09 AM EDT Height 167.6 cm (5' 6 ) 05/09/2025 9:09 AM EDT Body Mass Index 27.28 05/09/2025 9:09 AM EDT Plan of Treatment Upcoming Encounters Date Type Department Care Team (Late st Contact Info) Description 08/06/2025 10:45 AM EDT Office Visit [facility] [address] [facility] [place] [address] Name, MD Ramon [address] [facility] [place] [address] Health Maintenance Due Date Last Done Comments CT Colonography 1955 Colonoscopy 1955 FIT 1955 Sigmoidoscopy 1955 Derm Melanoma Skin Check 1955 Hepatitis C Screening 1971 Hepatitis B Vaccines (3 of 3 - 19+ 3-dose series) 06/15/2011 02/13/2011, 01/13/2011, 12/16/2010 FOBT 03/12/2023 03/12/2022 Colorectal Cancer Screening 03/12/2025 FIT DNA/Cologuard 03/12/2025 03/12/2022 Influenza Vaccine (#1) 2025 , 09/07/2024, 08/26/2023, Additional history exists Alcohol/Substance Use Screening 10/23/2025 10/23/2024 Depression Screening 05/09/2026 05/09/2025, 05/09/20 25 SDOH Screening 05/09/2026 05/09/2025 Tobacco Screening 05/09/2026 05/09/2025 Lipid Panel 10/29/2029 10/29/2024, 10/31, 07/18/2023, Additional history exists DTaP/Tdap/Td Vaccines (3 - Td or Tdap) 08/17/2031 08/17/2021, 12/16/2010 Hepatitis A Vaccines Aged Out 12/16/2010 No long er eligible based on patient's age to complete this topic Zoster Vaccines Completed 06/21/2019, 03/31, 07/30/2013 Pneumococcal Vaccine: 50+ Years Completed 05/08/2020, 02/02/2019 RSV Patients and Patients Aged 60 years or older Completed 09/02/2023 COVID-19 Vaccine Completed 04/16/2025, , 01/12/2024, Additional history exists HIB Vaccines Aged Out No longer eligi ble based on patient's age to complete this topic HPV Vaccines Aged Out No longer eligi ble based on patient's age to complete this topic IPV Vaccines Aged Out No longer eligi ble based on patient's age to complete this topic Meningococcal B Vaccine Aged Out No l onger eligible based on patient's age to complete [...] AM EDT Narrative 02/11/2025 8:23 AM EDT [address] [address] XRay Report Signed Patient: Misael Roberts MR#: [id number] : 1955 Acct:[id number] Age/Sex: 69 / M ADM Date: 02/09/25 Loc: HO.LAB Attending Dr: Ramon Cuellar MD Ordering Physician: Ramon Cuellar MD Date of Service: 02/09/25 Procedure(s): XR chest 2V Accession Number(s): [id number] cc: Ramon Cuellar MD EXAMINATION: XR CHEST [...] 02/11/25 0820 DD/ 1039 TD/TT: 02/09/25 1044 Hostel Parent: Procedure Note Donotuseinterpreter, Image - 02/11/[address] [address] XRay Report Signed Patient: Misael RobertsMR#: [id number] : 1955cct:[id number] Age/Sex: 69 / MADM Date: 02/09/25 Loc: HO.LAB Attending Dr: Ramon Cuellar MD Ordering Physician: Ramon Cuellar MD Date of Service: 02/09/25 Procedure(s): XR chest 2V Accession Number(s): [id number] cc: Ramon Cuellar MD EXAMINATION: XR CHEST [...] 02/11/2025 08:20 AM EDT RP Dictated By: dA Quinones MD Signed By: <Electronically signed by Ad Quinones MD in OV> 02/11/25 0820 DD/ 1039 TD/TT: 02/09/25 1044 Hostel Parent: Ramon Cuellar MD IMG XR PROCEDURES Edited Result - Final * TSH W/Reflex to FT4 (02/09/2025 10:36 AM EDT) TSH reflex Free T4 2.10 0.32 - 4.0 uIU/mL [facility] Blood Venous blood specimen / Unknown 02/09/2025 10:36 AM EDT 02/09/2025 10:36 AM EDT us Ramon Cuellar MD LAB BLOOD ORDERABLES Final Resul t [facility] [address] [place] [address] [phone] * CBC auto differential (02/09/2025 10:36 AM EDT) White Blood Count 7.8 4.8 - 10.8 X10*3/uL [facility] Red Blood Count 4.95 4.60 - 5.80 X10*6/uL [facility] Hemoglobin 15.3 14.0 - 18.0 g/dl [facility] Hematocrit 44.8 42.0 - 52.0 % [facility] Mean Corpuscular Volume 90.5 80.0 - 98.0 fL [facility] Mean Corpuscular Hemoglobin 30.9 27.0 - 33.0 pg [facility] Mean Corpuscular HGB Conc 34.2 31.0 - 36.0 g/dl [facility] Red Cell Distribution Width 12.6 11.0 - 16.0 % [facility] Platelet Count 196 160 - 400 X10*3/uL [facility] Mean Platelet Volume 9.6 9.4 - 12.4 fL [facility] Neutrophils Percent Auto 68.5 45 - 73 % [facility] Imm Gran Pct Auto 0.1 0.0 - 0.4 % [facility] Lymphocytes Percent Auto 21.7 20 - 40 % [facility] Monocytes Percent Auto 8.3 2 - 11 % [facility] Eosinophils Percent Auto 1.3 0 - 4 % [facility] Basophils Percent Auto 0.1 0 - 2 % [facility] NRBC Pct Auto 0.0 0.0 - 0.2 /100WBC [facility] Neutrophils Absolute Auto 5.3 2.0 - 8.3 x10*3/uL [facility] Imm Gran Abs Auto 0.01 0.00 - 0.03 X10*3/uL [facility] Lymphocytes Absolute Auto 1.7 1.2 - 4.9 X10*3/uL [facility] Monocytes Absolute Auto 0.7 0.1 - 1.2 X10*3/uL [facility] Eosinophils Absolute Auto 0.1 0.0 - 0.4 X10*3/uL [facility] Basophils Absolute Auto 0.0 0.0 - 0.2 X10*3/uL [facility] NRBC Abs Auto 0.000 0.0 - 0.012 X10*3/uL [facility] Blood Venous blood specimen / Unknown 02/09/2025 10:36 AM EDT 02/09/2025 10:36 AM EDT Ramon Cuellar MD LAB BLOOD ORDERABLES Final Resul t Performing Organization Address [facility] de Phone Number [facility] [address] [place] [address] [phone] * (ABNORMAL) Basic Metabolic Panel (02/09/2025 10:36 AM EDT) Sodium 140 135 - 145 mmol/L [facility] Potassium 4.4 3.3 - 5.1 mmol/L [facility] Chloride 109(H) 96 - 108 mmol/L [facility] Carbon Dioxide 25 22 - 29 mmol/L [facility] Anion Gap 10(L) 12 - 20 [facility] Urea Nitrogen (BUN) 20(H) 9 - 16 mg/dL [facility] Creatinine, Serum 1.11 0.5 - 1.4 mg/dL [facility] Estimated Glomerular Filt Rate >60 [facility] Comment:Chronic Kidney Disea se: Estimated GFR < 60 mL/min/1.39p5Dwchks Kidney Disease: Estimated GFR < 15 mL/min/1.73m2 Glucose 81 60 - 115 mg/dL [facility] Calcium 9.1 8.4 - 10.2 mg/dL [facility] Blood Venous blood specimen / Unknown 02/09/2025 10:36 AM EDT 02/09/2025 10:36 AM EDT us Ramon Cuellar MD LAB BLOOD ORDERABLES Final Resul t Performing Organization Address City/[facility]/ZIP Co de Phone Number [facility] [address] [place] [address] [phone] * POCT Rapid Influenza B MARTÍNEZ ID NOW (02/09/2025 9:54 AM EDT) Influenza B Negative Negative, Indeterminate [facility] QC Media Lot # [id number] [facility] Lot# Expiration Date [facility] Swab 02/09/2025 9:54 AM EDT us Ramon Cuellar MD POINT OF CARE TEST ENTER/EDIT OR DERABLES Final Result Performing Organization Address [facility] Co de Phone Number [facility] [address] [place] [phone] * POCT Rapid Influenza A MARTÍNEZ ID NOW (02/09/2025 9:54 AM EDT) Influenza A Negative Negative, Indeterminate [facility] QC Media Lot # [id number] [facility] Lot# Expiration Date [address] [facility] Swab 02/09/2025 9:54 AM EDT Ramon Cuellar MD POINT OF CARE TEST ENTER/EDIT OR DERABLES Final Result Performing Organization Address [facility] Co nh Phone Number [facility] [address] [place] [phone] * POCT Rapid Covid-19 MARTÍNEZ ID NOW (02/09/2025 9:53 AM EDT) Pathologist [facility] Coronavirus Antigen PCR Negative Negative, Indeterminate, None Detected, Invalid, Specimen unsatisfactory for evaluation, Weakly Positive QC Media Lot # [id number] Lot# Expiration Date 9426 Swab 02/09/2025 9:53 AM EDT Ramon Cuellar MD POINT OF CARE TEST ENTER/EDIT OR DERABLES Final Result * Lipid Panel, Standard (10/29/2024 8:23 AM EST) Triglycerides 45 <150 mg/dL [facility] Comment:Desirable Triglyceri de: less than 150 mg/dLBorderline High Triglyceride 150-199 mg/dLHigh Triglyceride: 200-499 mg/dLVery High Triglyceride: greater than or equal to 5OO mg/dL Cholesterol 147 <200 mg/dL [facility] Comment:Desirable Cholestero l: less than 200 mg/dLBorderline High Cholesterol: 200-239 mg/dLHigh Cholesterol: greater than 239 mg/dL LDL Cholesterol Calculated 61 <100 mg/dL [facility] Comment:Desirable LDL: less than 100 mg/dLNear Optimal/Above Optimal LDL: 110- 129 mg/dLBorderline High LDL: 130-159 mg/dLHigh LDL: 160-189 mg/dLVery High LDL: greater than or equal to 190 mg/dL HDL Cholesterol 77 >40 mg/dL [facility] Comment:Desirable HDL: great er than 40 mg/dL Note: This HDL assay may give artificially low results in patients with liver disease. Blood Venous blood specimen / Unknown 10/29/2024 8:23 AM EST 10/29/2024 8:26 AM EST us Ramon Cuellar MD LAB BLOOD ORDERABLES Final Resul t [facility] [address] [place] [phone] * FIT DNA/Cologuard Cancer Screening (03/12/2022) Cologuard Cancer Screen Negative Comment:Negative F/U in 3 ye ars Stool us Ramon Cuellar MD HEALTH MAINTENANCE Final Result from Last 3 Months or Most Recently Relevant to Health Maintenance Insurance [facility] MEDICARE REPLACEMENT PPO Care Teams Stone Paver Relationship Specialty Start Date End Date Name, MD Ramon [address] [place] [phone] PCP - General Family Medicine 08/18/21
--- OUTSIDE RECORDS SUMMARY | 2025-05-09 10:37 | XMS_ITS | Encounter Summary ---
Author Organization [facility] Address [facility] [place] [address] Care Team Providers Care Pump Tester Name Role Phone Jose Antonio Luevano MD Primary Care Provider [phone] Encounter Details Date Type Department Care Team Description 08/08/2019 Hospital Medical Records [address] [place] [address] Bill Siddiqi MD [address] [place] [phone] Social History Tobacco Use Types Packs/Day [...] on filedocumented in this encounter Care Teams Pump Tester Relationship Specialty Start Date End Date Jose Antonio Luevano MD [address] [place] [address] PCP - General Internal Medicine 08/15/15 documented as of this encounter
[2025-05-09 10:40] LABS: Hematocrit 42.2 % (42.0-52.0); Hemoglobin 14.6 g/dl (14.0-18.0); Imm Gran Abs Auto 0.01 X10*3/uL (0.00-0.03); Imm Gran Pct Auto 0.2 % (0.0-0.4); Lymphocytes Absolute Auto 1.2 X10*3/uL (1.2-4.9); Mean Corpuscular HGB Conc 34.6 g/dl (31.0-36.0); Mean Corpuscular Hemoglobin 30.9 pg (27.0-33.0); Mean Corpuscular Volume 89.2 fL (80.0-98.0); NRBC Abs Auto 0.000 X10*3/uL (0.0-0.012); NRBC Pct Auto 0.0 /100WBC (0.0-0.2); Platelet Count 171 X10*3/uL (160-400); Red Blood Count 4.73 X10*6/uL (4.60-5.80); White Blood Count 5.8 X10*3/uL (4.8-10.8)
[2025-05-09 11:23] LABS: Prostate Specific Antigen 0.60 ng/mL (<0.05-4.0)
[2025-05-09 11:35] LABS: Alanine Aminotransferase 34 U/L (0-40); Albumin Level 4.2 g/dL (3.5-5.0); Alkaline Phosphatase 76 U/L (39-117); Anion Gap 7 (12-20); Aspartate Amino Transferase 32 U/L (5-37); Blood Urea Nitrogen 17 mg/dL (9-16); Calcium 8.8 mg/dL (8.4-10.2); Carbon Dioxide 26 mmol/L (22-29); Chloride 109 mmol/L (96-108); Estimated Glomerular Filt Rate 54; Potassium 4.1 mmol/L (3.3-5.1); Sodium 138 mmol/L (135-145); Total Protein 6.9 g/dL (6.5-8.0)
== END 2025-05-09 10:00 | disposition home or self-care (01) ==
LOC: HO.LAB 09:59
PROVIDERS: PCP Internal Medicine Geriatric Medicine; Visit Provider Internal Medicine Geriatric Medicine
DX: N40.1 Benign prostatic hyperplasia with lower urinary tract symptoms (principal); R06.09 Other forms of dyspnea; E03.9 Hypothyroidism, unspecified; R35.1 Nocturia
CPT/HCPCS: 36415; 80053; 84153; 84443; 85025

== ENCOUNTER → 2025-06-26 08:01 | Outpatient (REF) | payer MEDICARE, SELFPAY ==
--- NOTE | 2025-06-26 08:04 | CA_ITS ---
Transthoracic Echocardiogram Patient (Last, First, Middle): Spike Roberts, Gender: M Date of : 1955 Age: 70 Procedure Date: 06/26/2025 Procedure Type: Transthoracic Echocardiogram Location: OP Height: 167.64 cm Weight: 75.75 kg BSA: 1.85 m2 Heart Rate: bpm BP: 120 / 62 mmHg Seam Stayer: JAKE Referring MD: Ramon Cuellar MD Symptoms: VILLATORO R06.09 Study Quality: Adequate ECG Rhythm: Sinus Conclusions: - The left ventricular systolic function is normal. The calculated ejection fraction is 60% by biplane method. - No obvious valvular pathology seen on this study. Findings Left Ventricle Normal left ventricular cavity size. There is normal left ventricular wall thickness. The left ventricular systolic function is normal. The calculated ejection fraction is 60% by biplane method. There is no evidence of regional wall motion abnormalities. Diastolic function is normal for age. Right Ventricle Mildly increased right ventricular cavity size. There is normal right ventricular systolic function. Atria Both atria are normal in size. Aortic Valve There is a normal trileaflet aortic valve. There is mild calcification of the aortic valve. There is no aortic valve stenosis. There is trace (trivial) aortic valve regurgitation. Mitral Valve The mitral valve appears normal. There is trace mitral valve regurgitation. There is no mitral valve stenosis. Pulmonic Valve The pulmonic valve is likely normal. Tricuspid Valve There is trace tricuspid valve regurgitation. There is no evidence of pulmonary hypertension. Great Vessels The asc aorta and aortic arch are normal in size. Venous The inferior vena cava is normal in size and collapses greater than 50% with inspiration. Pericardium/Pleural There is no evidence of pericardial effusion. Prior Study Comparison No significant change compared to prior study dated: 04/15/2023. Recommendations, Care & Conclusions No obvious valvular pathology seen on this study. Measurements 2D Linear Measurements IVSd: 0.92 0.6-0.9/0.6-1.0 cm LVIDd: 5.04 3.9-5.3/4.2-5.9 cm LVIDd Index: 2.72 2.4-3.2/2.2-3.1 cm/m2 LVIDs: 3.89 2.0-3.6 cm LVPWd: 1.07 0.7-1.1 cm LA Diam: 3.80 2.7-3.8/3.0-4.0 cm LAIDs Index: 2.05 1.5-2.3 cm/m2 LV Mass: 228.34 67-162/88-224 g LV Mass Index: 123.42 43-95/49-115 g/m2 LVOT Diam: 2.00 3.0+(-)1.3 cm 2D Systolic Function EF 4C: 59.60 >55% EF 2C: 61.90 >55% EF BiP: 60.10 >55% Mitral Valve MV Pk E: 0.64 MV PK A: 0.74 MV Decel Time: 301.00 E/A: 0.90 E'Lateral: 11.90 E'Medial: 7.51 E/E' Med: 8.50 E/E' Lat: 5.40 PHT: 88.00 MVA PHT: 2.50 Decel Beauregard: 2.12 Aortic Valve AoV Pk Petr: 1.58 AoV Mn Petr: 1.03 AoV VTI: 0.39 AoV Pk Grad: 10.00 Aov Mn Grad: 5.00 CELY Cont.VTI: 2.27 LVOT LVOT Pk Petr: 1.41 LVOT Mn Petr: 0.85 LVOT VTI: 0.28 LVOT Pk Grad: 8.00 LVOT Mn Grad: 4.00 LVOT Diam: 2.00 LVOT Area: 3.14 Diastolic Function MV Pk E: 0.64 MV Pk A: 0.74 E/A: 0.90 E'Medial: 7.51 E/E' Med: 8.50 E' Laterial: 11.90 E/E' Lat: 5.40 Right Ventricle TAPSE (mm): 24.40 Tricuspid Valve TR Pk Petr: 2.04 TR Pk Grad: 17.00 RA Press: 3.00 RVSP: 20.00 Great Vessels Aorta Sinus of Valsalva: 3.56 2.0-3.[address] Ridge: 2.64 1.7-3.4 cm Ao Asc: 3.70 2.1-3.4 cm Ao Arch: 2.50 Pulmonary Veins Pulm Vein S/D 1.00 Updated in Other Vendor System with Status of Final Serge Edmond MD electronically signed on 06/27/2025 12:40:46 PM with status of Final
--- OUTSIDE RECORDS SUMMARY | 2025-06-26 08:05 | XMS_ITS | Encounter Summary ---
Author Organization [facility] Address [address] [place] [address] Care Team Providers Care Electrical Assembly Technician Name Role Phone Jose Antonio Luevano MD Primary Care Provider [phone] Encounter Details Date Type Department Care Team Description 11/11/2020 Director Targeted Marketing Report Medical Records [address] [place] [phone] Chavez Gloria MD Social History Tobacco Use Types Packs/Day [...] have Coronavirus / COVID-19? No / Unsure 10/30/2020 10:09 AM EST documented as of this encounter Plan of Treatment Not on file documented as of this encounter Visit Diagnoses Not on filedocumented in this encounter Care Teams Electrical Assembly Technician Relationship Specialty Start Date End Date Jose Antonio Luevano MD [address] [place] [phone] PCP - General Internal Medicine 08/15/15 documented as of this encounter
--- OUTSIDE RECORDS SUMMARY | 2025-06-26 08:05 | XMS_ITS | Encounter Summary ---
Author Organization [facility] Address [address] [place] [address] Care Team Providers Care Exhibition Designer Name Role Phone Jose Antonio Luevano MD Primary Care Provider [phone] Reason for Visit * Reason Onset Date Comments Quality-fobt 01/23/2021 Encounter Details Date Type Department Care Team Description 01/23/2021 Telephone Adult Medicine [facility] [address] [place] [address] [phone] Jose Antonio Luevano MD [address] [place] [phone] Quality-fobt Social History Tobacco Use Types Packs/Day Years [...] have Coronavirus / COVID-19? No / Unsure 01/23/2021 8:45 AM EDT documented as of this encounter Miscellaneous Notes * Telephone Encounter - Roselyn Burdick M.A. - 04/23/2021 10:43 AM EDT Patient has yet to complete FIT testing. Letter mailed to patient. documented in this encounter Plan of Treatment Not on file documented as of this encounter Visit Diagnoses Not on filedocumented in this encounter Care Teams Exhibition Designer Relationship Specialty Start Date End Date Jose Antonio Luevano MD [address] [place] [phone] PCP - General Internal Medicine 08/15/15 documented as of this encounter
--- OUTSIDE RECORDS SUMMARY | 2025-06-26 08:05 | XMS_ITS | Encounter Summary ---
Author Organization [facility] Address [address] [place] [address] Care Team Providers Care Rice Drier Operator Name Role Phone Jose Antonio Luevano MD Primary Care Provider [phone] Encounter Details Date Type Department Care Team Description 08/13/2019 Orders Only Medical Records [address] [place] [address] Bill Siddiqi MD [address] [place] [phone] Social History Tobacco Use Types Packs/Day Years Used Date Smoking Tobacco: Never Smokeless Tobacco: Never Alcohol Use Standard Drinks/Week Comments Yes 0 (1 standard drink = 0.6 oz pur e alcohol) occ Sex Assigned at Date Recorded Not on file documented as of this encounter Plan of Treatment Not on file documented as of this encounter Procedures Procedure Name Priority Date/Time Associated Diagnosis Comments OUTSIDE PATHOLOGY Routine 08/08/2019 documented in this encounter Results * OUTSIDE PATHOLOGY (08/08/2019) Bill Siddiqi MD OUTSIDE LAB documented in this encounter Visit Diagnoses Not on filedocumented in this encounter Care Teams Rice Drier Operator Relationship Specialty Start Date End Date Jose Antonio Luevano MD [address] [place] [address] PCP - General Internal Medicine 08/15/15 documented as of this encounter
--- OUTSIDE RECORDS SUMMARY | 2025-06-26 08:05 | XMS_ITS | Encounter Summary ---
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 We reviewed treatment options including Mohs surgery [...] on filedocumented in this encounter Care Teams Credentialing Analyst Relationship Specialty Start Date End Date Jose Antonio Luevano MD [address] [place] [id number] PCP - General Internal Medicine 08/15/15 documented as of this encounter
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
--- OUTSIDE RECORDS SUMMARY | 2025-06-26 08:05 | XMS_ITS | Encounter Summary ---
Author Organization [facility] Address [facility] [place] [address] Care Team Providers Care Police Service Technician Name Role Phone Jose Antonio Luevano MD Primary Care Provider + [phone] Encounter Details Date Type Department Care Team Description 08/08/2019 Hospital Medical Records [address] [place] [address] Bill Siddiqi MD [address] [place] [phone] Social History Tobacco Use Types Packs/Day [...] on filedocumented in this encounter Care Teams Police Service Technician Relationship Specialty Start Date End Date Jose Antonio Luevano MD [address] [place] [address] PCP - General Internal Medicine 08/15/15 documented as of this encounter
--- OUTSIDE RECORDS SUMMARY | 2025-06-26 08:05 | XMS_ITS | Encounter Summary ---
Author Organization [facility] Address [address] [place] [address] Care Team Providers Care Icer Air Conditioning Name Role Phone Jose Antonio Luevano MD Primary Care Provider [phone] Reason for Visit * Reason Onset Date Comments Quality-fobt 02/26/2016 fit cards given today at physical. Encounter Details Date Type Department Care Team Description 02/26/2016 Telephone Adult Medicine [address] [address] Jose Antonio Luevano MD [address] [place] [phone] Quality-fobt (fit cards given today at physical.) [...] on filedocumented in this encounter Care Teams Icer Air Conditioning Relationship Specialty Start Date End Date Jose Antonio Luevano MD [address] [place] [address] PCP - General Internal Medicine 08/15/15 documented as of this encounter
--- OUTSIDE RECORDS SUMMARY | 2025-06-26 08:06 | XMS_ITS | Encounter Summary ---
Author Organization [facility] Address [address] [place] [address] Care Team Providers Care Photograph Retoucher Name Role Phone Jose Antonio Luevano MD Primary Care Provider + [phone] Reason for Visit * Reason Onset Date Comments Quality-fobt 03/06/2019 Encounter Details Date Type Department Care Team Description 03/06/2019 Telephone Adult Medicine [facility] [address] [place] [address] Jose Antonio Luevano MD [address] [place] [phone] Quality-fobt Social History Tobacco Use Types Packs/Day Years Used Date Smoking Tobacco: Never Smokeless Tobacco: Never Alcohol Use Standard Drinks/Week Comments Yes 0 (1 standard drink = 0.6 oz pur e alcohol) occ Sex Assigned at Date Recorded Not on file documented as of this encounter Miscellaneous Notes * Telephone Encounter - Roselyn Burdick M.A. - 04/04/2019 2:23 PM EDT Patient has yet to complete FIT testing. Letter sent home * Telephone Encounter - Cecilia Mayorga M.A. - 03/06/2019 10:17 AM EDT Fit test given to patient at time of office visit documented in this encounter Plan of Treatment Not on file documented as of this encounter Visit Diagnoses Not on filedocumented in this encounter Care Teams Photograph Retoucher Relationship Specialty Start Date End Date Jose Antonio Luevano MD [address] [place] [phone] PCP - General Internal Medicine 08/15/15 documented as of this encounter
--- OUTSIDE RECORDS SUMMARY | 2025-06-26 08:06 | XMS_ITS | Encounter Summary ---
Author Organization [facility] Address [address] [place] [address] Care Team Providers Care Roller Turner Name Role Phone Jose Antonio Luevano MD Primary Care Provider + [phone] Encounter Details Date Type Department Care Team Description 06/15/2018 Pt. Non Urgent Medical Question Adult Medicine [address] [phone] Jose Antonio Luevano MD [address] [place] [phone] Social History Tobacco Use Types Packs/Day Years [...] 06/15/2018 1:29 PM EDT Subject: FIT results [id number] again To avoid a problem like last [...] on filedocumented in this encounter Care Teams Roller Turner Relationship Specialty Start Date End Date Jose Antonio Luevano MD [address] [place] [address] PCP - General Internal Medicine 08/15/15 documented as of this encounter
--- OUTSIDE RECORDS SUMMARY | 2025-06-26 08:06 | XMS_ITS | Encounter Summary ---
Author Organization [facility] Address [address] [place] [address] Care Team Providers Care Pump Assembler Name Role Phone Jose Antonio Luevano MD Primary Care Provider + [phone] Encounter Details Date Type Department Care Team Description 05/09/2019 Orders Only Adult Medicine [facility] [address] [place] [address] [phone] Jose Antonio Luevano MD [address] [place] [phone] Hydroureter; Screening for malignant neoplasm of the rectum Social History Tobacco Use Types Packs/Day Years [...] Procedure Name Priority Date/Time Associated Diagnosis Comments CHG BLOOD OCCULT FECAL HGB DETER IA QUAL FECES 1-3 Routine 05/01/2019 11:47 AM EDT Hydroureter Screening for malignant neoplasm of the rectum documented in this encounter Results * BLOOD OCCULT QUAL FECAL HEMGLBN (05/01/2019 11:47 AM EDT) OCCULT BLOOD, STOOL NEG INTERNAL CONTROL VALID YES Stool 05/01/2019 11:4 7 AM EDT Jose Antonio Luevano MD LAB documented in this encounter Visit Diagnoses Diagnosis Hydroureter Screening for malignant neoplasm of the rectum documented in this encounter Care Teams Pump Assembler Relationship Specialty Start Date End Date Jose Antonio Luevano MD [address] [place] [phone] PCP - General Internal Medicine 08/15/15 documented as of this encounter
--- OUTSIDE RECORDS SUMMARY | 2025-06-26 08:06 | XMS_ITS | Encounter Summary ---
Author Organization [facility] Address [address] [place] [address] Care Team Providers Care Nuclear Waste Process Operator Name Role Phone Steve Mills MD Primary Care Provider Unavail able Ramon Cuellar MD Primary Care Provider UnavailJose Antonio Barrett MD Primary Care Provider [phone] Encounter Details Date Type Department Care Team Description 01/24/2015 Pt. Non Urgent Medic al Question Adult Medicine [address] [address] Steve Mills MD Social History Tobacco Use [...] never filled it at [facility] in [place]. I found out that my insurance only does 30-day prescriptions from local retail pharmacies. 90-day prescriptions must go to the [facility] mail-order pharmacy. I'd like a 90-day supply, so please send the prescription (for tablets, not capsules; see below) instead to the mail-order pharmacy, which is [facility], . Thank you. Oh, and one other [...] the prescription when you send it to [facility]. documented in this encounter Plan of Treatment Not on file documented as of this encounter Visit Diagnoses Not on filedocumented in this encounter Care Teams Nuclear Waste Process Operator Relationship Specialty Start Date End Date Steve Mills MD PCP - General Internal Medicine 11/25/14 05/18/15 Name, MD Ramon PCP - General Internal Medicine 05/19/15 08/14/15 Jose Antonio Luevano MD [address] [place] [phone] PCP - General Internal Medicine 08/15/15 documented as of this encounter
== END ==
LOC: HO.CARD 08:01
PROVIDERS: PCP Internal Medicine Geriatric Medicine; Visit Provider Internal Medicine Geriatric Medicine
DX: R06.09 Other forms of dyspnea (principal)
CPT/HCPCS: 93306

== ENCOUNTER → 2025-06-26 08:04 | Outpatient (BNV) | payer MEDICARE, SELFPAY | PROVIDERS: PCP Internal Medicine Geriatric Medicine; Visit Provider Internal Medicine | DX: I35.8 Other nonrheumatic aortic valve disorders (principal); R06.09 Other forms of dyspnea | CPT/HCPCS: 93306 ==

== ENCOUNTER 2025-08-06 11:42 | Outpatient (REF) | payer MEDICARE, SELFPAY ==
--- OUTSIDE RECORDS SUMMARY | 2025-08-06 10:45 | XMS_ITS | Encounter Summary ---
Author Organization [employer] Address [address] [place] [address] [address] [place] [address] Care Team Providers Care Power Shovel Mechanic Name Role Phone Name, Ramon LAY Primary Care Provider [phone] Reason for Visit * Reason Comments Follow-up Encounter Details Date Type Department Care Team ([facility] st Contact Info) Description 08/06/2025 10:45 AM EDT Office Visit [facility] [address] [place] [address] [phone] Name, MD Ramon [address] [place] [address] Paroxysmal atrial fibrillation (CMS/HCC) (HCC) (Primary Dx); On statin therapy; Encounter for screening for malignant neoplasm of colon Social History Tobacco Use Types Packs/Day Years [...] Orientation Straight 08/30/2022 10 :36 AM EDT Travel History Travel Start Travel End [place] 07/15/2025 07/15/2025 documented as of this encounter Last Filed Vital Signs Vital Sign Reading Time Taken Comments Blood Pressure 126/78 08/06/2025 10:52 AM EDT Pulse 69 08/06/2025 10:52 AM EDT Temperature 36.8 C (98.3 F) 08/06/2025 10:52 AM EDT Respiratory Rate 18 08/06/2025 10:5 2 AM EDT Oxygen Saturation 97% 08/06/2025 10: 52 AM EDT Inhaled Oxygen Concentration - - Weight 75.2 kg (165 lb 12.8 oz) 025 10:52 AM EDT Height 167.6 cm (5' 6 ) 08/06/2025 10:5 2 AM EDT Body Mass Index 26.76 08/06/2025 10:52 AM EDT documented in this encounter Progress Notes * Ramon Cuellar MD - 08/06/2025 10:45 AM EDT Subjective Patient ID: Misael Roberts is a 70 y.o. male who presents for Follow-up. Patient comes for a follow-up visit. He is doing well. He continues to be physically active. No palpitations, no chest pain, no significant dyspnea on exertion, no problems tolerating current dose ofEliquis. On his most recent blood work he has slight elevation of creatinine. I recommended to recheck his CMP and lipids. He does not use NSAIDs. He is encouraged to drink plenty of water. He continues using statin for primary prevention of cardiovascular disease. He already received flu and COVIDvaccination. He did not collect stool sample for FIT for colon cancer screening because he never got the correct instructions on how to do the procedure and today we reordered the test for him and provided him with the correct instructions. Review of Systems Constitutional: Negative for chills, fatigue and fever. HENT: Negative for sore throat. Respiratory: Negative for cough, chest tightness and shortness of breath. Cardiovascular: Negative for chest pain, palpitations and leg swelling. Gastrointestinal: Negative for abdominal pain and blood in stool. Objective Vitals: 08/06/25 1052 BP: 126/78 BP Location: Left arm Patient Position: Sitting BP Cuff Size: Adult Pulse: 69 Resp: 18 Temp: 98.3 ??F (36.8 ??C) TempSrc: Temporal SpO2: 97% Weight: 165 lb 12.8 oz (75.2 kg) Height: 5' 6 (1.676 m) Physical Exam Constitutional: Appearance: Normal appearance. Cardiovascular: Rate and Rhythm: Normal rate and regular rhythm. Heart sounds: No murmur heard. Pulmonary: Effort: Pulmonary effort is normal. No respiratory distress. Breath sounds: No wheezing, rhonchi or rales. Abdominal: Palpations: Abdomen is soft. Tenderness: There is no abdominal tenderness. Musculoskeletal: Right lower leg: No edema. Left lower leg: No edema. Neurological: Mental Status: He is alert. Assessment/Plan Diagnoses and all orders for this visit: Paroxysmal atrial fibrillation (CMS/HCC) (HCC) Comments: Continue Multaq and Eliquis as prescribed by cardiology. Orders: - Comprehensive Metabolic Panel; Future - Lipid Panel, Standard; Future On statin therapy Comments: Continue pravastatin. Recheck CMP and lipids. Orders: - Comprehensive Metabolic Panel; Future - Lipid Panel, Standard; Future Encounter for screening for malignant neoplasm of colon Comments: He does not want a colonoscopy. He believes Cologuard has too many false positive. I reordered FIT testing for him. He does not have history of colon polyps. No family history of colon cancer. No history of rectal bleeding. Orders: - Fecal immunochemical; Future documented in this encounter Plan of Treatment Scheduled Orders Name Type Priority Associated Diagnoses Orde r Schedule Fecal immunochemical Lab Routine Encounter for screening for malignant neoplasm of colon Expected: 08/06/2025 (Approximate), Expires: 08/06/2026 documented as of this encounter Procedures Procedure Name Priority Date/Time Associated Diagnosis Comments LIPID PANEL, STANDARD Routine 08/06/2025 12:02 PM EDT Paroxysmal atrial fibrillation (CMS/HCC) (HCC) On statin therapy COMPREHENSIVE METABOLIC PANEL Routine 08/06/2025 12:02 PM EDT Paroxysmal atrial fibrillation (CMS/HCC) (HCC) On statin therapy documented in this encounter Results * Lipid Panel, Standard (08/06/2025 12:02 PM EDT) Triglycerides 49 <150 mg/dL [facility] Comment:Desirable Triglyceri de: less than 150 mg/dLBorderline High Triglyceride 150-199 mg/dLHigh Triglyceride: 200-499 mg/dLVery High Triglyceride: greater than or equal to 5OO mg/dL Cholesterol 136 <200 mg/dL [facility] Comment:Desirable Cholestero l: less than 200 mg/dLBorderline High Cholesterol: 200-239 mg/dLHigh Cholesterol: greater than 239 mg/dL LDL Cholesterol Calculated 52 <100 mg/dL [facility] Comment:Desirable LDL: less than 100 mg/dLNear Optimal/Above Optimal LDL: 110- 129 mg/dLBorderline High LDL: 130-159 mg/dLHigh LDL: 160-189 mg/dLVery High LDL: greater than or equal to 190 mg/dL HDL Cholesterol 75 >40 mg/dL [facility] Comment:Desirable HDL: great er than 40 mg/dL Note: This HDL assay may give artificially low results in patients with liver disease. Blood Venous blood specimen / Unknown 08/06/2025 12:02 PM EDT 08/06/2025 12:02 PM EDT us Ramon Cuellar MD LAB BLOOD ORDERABLES Final Resul t Performing Organization Address City/[facility]/ZIP Co de Phone Number [facility] [address] [place] [phone] * (ABNORMAL) Comprehensive Metabolic Panel (08/06/2025 12:02 PM EDT) Sodium 140 135 - 145 mmol/L [facility] Potassium 3.9 3.3 - 5.1 mmol/L [facility] Chloride 109(H) 96 - 108 mmol/L [facility] Carbon Dioxide 23 22 - 29 mmol/L [facility] Anion Gap 12 12 - 20 [facility] Urea Nitrogen (BUN) 18(H) 9 - 16 mg/dL [facility] Creatinine, Serum 1.29 0.5 - 1.4 mg/dL [facility] Estimated Glomerular Filt Rate 55 [facility] Comment:Chronic Kidney Disea se: Estimated GFR < 60 mL/min/1.14a8Ursche Kidney Disease: Estimated GFR < 15 mL/min/1.73m2 Glucose 79 60 - 115 mg/dL [facility] Calcium 8.9 8.4 - 10.2 mg/dL [facility] Bilirubin, Total 1.3(H) 0.0 - 1.0 mg/dL [facility] Comment:Slight Icterus. Aspartate Amino Transferase 26 5 - 37 U/L [facility] Alanine Aminotransferase 22 0 - 40 U/L [facility] Total Protein 6.6 6.5 - 8.0 g/dL [facility] Albumin Level 4.1 3.5 - 5.0 g/dL [facility] Alkaline Phosphatase 77 39 - 117 U/L [facility] Blood Venous blood specimen / Unknown 08/06/2025 12:02 PM EDT 08/06/2025 12:02 PM EDT us Ramon Cuellar MD LAB BLOOD ORDERABLES Final Resul t Performing Organization Address City/[facility]/ZIP Co de Phone Number [facility] [address] [place] [phone] documented in this encounter Visit Diagnoses Diagnosis Paroxysmal atrial fibrillation (CMS/HCC) (HCC)- Primary Atrial fibrillation On statin therapy Encounter for screening for malignant neoplasm of colon documented in this encounter Additional Health Concerns Assessment Noted Time PHQ-9 Depression Total Score: 4 05/09/20 25 9:32 AM EDT documented as of this encounter Care Teams Power Shovel Mechanic Relationship Specialty Start Date End Date Name, MD Ramon [address] [place] [address] PCP - General Family Medicine 08/18/21 documented as of this encounter
[2025-08-06 12:57] LABS: Alanine Aminotransferase 22 U/L (0-40); Albumin Level 4.1 g/dL (3.5-5.0); Alkaline Phosphatase 77 U/L (39-117); Anion Gap 12 (12-20); Aspartate Amino Transferase 26 U/L (5-37); Blood Urea Nitrogen 18 mg/dL (9-16); Calcium 8.9 mg/dL (8.4-10.2); Carbon Dioxide 23 mmol/L (22-29); Chloride 109 mmol/L (96-108); Cholesterol 136 mg/dL (<200); Estimated Glomerular Filt Rate 55; HDL Cholesterol 75 mg/dL (>40); Potassium 3.9 mmol/L (3.3-5.1); Sodium 140 mmol/L (135-145); Total Protein 6.6 g/dL (6.5-8.0); Triglycerides 49 mg/dL (<150)
--- OUTSIDE RECORDS SUMMARY | 2025-08-06 14:49 | XMS_ITS | Encounter Summary ---
Author Organization [email or web address] Address [address] [facility] [address] [place] [address] Care Team Providers Care Director Of Distribution Name Role Phone Name, Ramon LAY Primary Care Provider [phone] Reason for Visit * Reason Onset Date Comments Med Refill 03/22/2025 Encounter Details Date Type Department Care Team ([facility] st Contact Info) Description 03/22/2025 Refill [facility] [address] [place], [place] [phone] Name, MD Ramon [address] [place] [address] Social History Tobacco Use Types Packs/Day Years [...] EDT Travel History Travel Start Travel End [place] 07/15/2025 07/15/2025 documented as of this encounter Plan of Treatment Not on file documented as of this encounter Visit Diagnoses Not on filedocumented in this encounter Additional Health Concerns Assessment Noted Time PHQ-9 Depression Total Score: 0 03/19/20 24 9:41 AM EDT documented as of this encounter Care Teams Director Of Distribution Relationship Specialty Start Date End Date Name, MD Ramon [address] [place] [address] PCP - General Family Medicine 08/18/21 documented as of this encounter
--- OUTSIDE RECORDS SUMMARY | 2025-08-06 14:49 | XMS_ITS | Encounter Summary ---
Author Organization [email or web address] Address [address] [facility] [address] [place] [address] Care Team Providers Care Compression Molding Machine Setter Name Role Phone Name, Ramon LAY Primary Care Provider Encounter Details Date Type Department Care Team ([facility] st Contact Info) Description 08/05/[address] [facility] [address] [place] [address] Sushila Gomez, MARGARITO Social History Tobacco Use Types Packs/Day Years [...] EDT Travel History Travel Start Travel End [place] 07/15/2025 07/15/2025 documented as of this encounter Miscellaneous Notes * Telephone Encounter - Sushila Gomez RN - 08/05/2025 11:21 AM EDT Incoming message from pt via [facility] Dr Cuellar, My and I are taking a vacation, to [place] from Aug 20 to Sep 03. Icalled the airline, and they suggested that I have a doctor's letter that lists all my medications,so they won't take any of them away from me at the airport. Or, if you prefer, I suppose a copy of my prescriptions for the medicines would also work. I would be very grateful if hope you are willingto do this, or have a master steam yacht do it. Here's a list of my mediations, to save you the time of looking them up. Pravastatin Synthroid Multaq Tamsulosin Eliquis Zolpidem Latanoprost I can crab picker the letter at my August 06 appointment. Thank you, Misael Roberts . The letter has been generated, printed for PCP to review and sign. MakeLeapsage sent to pt that the letter will be ready for crab picker on 08/06/25 at their appointment. Pt isto follow up with PCP as needed. documented in this encounter Plan of Treatment Not on file documented as of this encounter Visit Diagnoses Not on filedocumented in this encounter Additional Health Concerns Assessment Noted Time PHQ-9 Depression Total Score: 4 05/09/20 9:32 AM EDT documented as of this encounter Care Teams Compression Molding Machine Setter Relationship Specialty Start Date End Date Name, MD Ramon [address] [place] [address] PCP - General Family Medicine 08/18/21 documented as of this encounter
--- OUTSIDE RECORDS SUMMARY | 2025-08-06 14:49 | XMS_ITS | Encounter Summary ---
Author Organization [employer] Address 75 [facility] [address] [place] [address] Care Team Providers Care Supervisor Mixing Name Role Phone Name, Ramon LAY Primary Care Provider Reason for Visit * Reason Onset Date Comments chart prep 08/05/2025 Encounter Details Date Type Department Care Team ([facility] st Contact Info) Description 08/05/2025 Telephone [facility] [address] [place], [place] [phone] Name, MD Ramon [address] [place] [address] chart prep Social History Tobacco Use Types Packs/Day Years [...] EDT Travel History Travel Start Travel End [place] 07/15/2025 07/15/2025 documented as of this encounter Miscellaneous Notes * Telephone Encounter - Chapo Odom [place] - 08/05/2025 1:18 PM EDT Chart Prep Labs: done Images: done Echo 06/26/25 Referrals: cardio [place] [facility] [place] due: Covid and Flu Screenings: colonoscopy Overdue care gaps: SBIRT documented in this encounter Plan of Treatment Not on file documented as of this encounter Visit Diagnoses Not on filedocumented in this encounter Additional Health Concerns Assessment Noted Time PHQ-9 Depression Total Score: 4 05/09/20 9:32 AM EDT documented as of this encounter Care Teams Supervisor Mixing Relationship Specialty Start Date End Date Name, MD Ramon [address] [place] [address] PCP - General Family Medicine 08/18/21 documented as of this encounter
--- OUTSIDE RECORDS SUMMARY | 2025-08-06 14:49 | XMS_ITS | Encounter Summary ---
Author Organization [employer] Address 75 [facility] [address]t [place] [address] Care Team Providers Care Voucher Clerk Name Role Phone Name, Ramon LAY Primary Care Provider [phone] Encounter Details Date Type Department Care Team (Latest Contact Info) Description 08/04/2025 Travel Social History Tobacco Use Types Packs/Day [...] EDT Travel History Travel Start Travel End [place] 07/15/2025 07/15/2025 documented as of this encounter Plan of Treatment Not on file documented as of this encounter Visit Diagnoses Not on filedocumented in this encounter Additional Health Concerns Assessment Noted Time PHQ-9 Depression Total Score: 4 05/09/20 25 9:32 AM EDT documented as of this encounter Care Teams Voucher Clerk Relationship Specialty Start Date End Date Name, MD Ramon [address] [place] [address] PCP - General Family Medicine 08/18/21 documented as of this encounter
--- OUTSIDE RECORDS SUMMARY | 2025-08-06 14:49 | XMS_ITS | Encounter Summary ---
Author Organization [employer] Address 75 [facility] [address]t [place] [address] Care Team Providers Care Education Associate Name Role Phone Name, Ramon LAY Primary Care Provider [phone] Encounter Details Date Type Department Care Team (Latest Contact Info) Description 08/06/2025 Travel Social History Tobacco Use Types Packs/Day [...] EDT Travel History Travel Start Travel End [place] 07/15/2025 07/15/2025 documented as of this encounter Plan of Treatment Not on file documented as of this encounter Visit Diagnoses Not on filedocumented in this encounter Additional Health Concerns Assessment Noted Time PHQ-9 Depression Total Score: 4 05/09/20 25 9:32 AM EDT documented as of this encounter Care Teams Education Associate Relationship Specialty Start Date End Date Name, MD Ramon [address] [place] [address] PCP - General Family Medicine 08/18/21 documented as of this encounter
--- OUTSIDE RECORDS SUMMARY | 2025-08-06 14:49 | XMS_ITS | Clinical Summary ---
Author Organization [employer] Address 75 [facility] [address] [place] [address] Care Team Providers Care Scrap Drop Crane Operator Name Role Phone Name, Ramon LAY Primary Care Provider [phone] Allergies Active Allergy Reactions Criticality Noted Date Comments Other 10/31/2011 Medications latanoprost (Xalatan) 0.005 % ophthalmic solution Administer 1 drop into both eyes at bedtime. 11/15/19 23 Active zolpidem (Ambien) 5 MG tablet TAKE 1 TABLET BY MOUTH EVERYDAY AT BEDTIME 30 tablet 2 02/11/20 23 Active Eliquis 5 MG tablet 02/09/20 25 Active tamsulosin (Flomax) 0.4 MG 24 hr capsule TAKE 1 CAPSULE BY MOUTH EVERY DAY 90 capsule 1 03/22/20 25 Active dronedarone (Multaq) 400 MG tablet 03/21/20 25 Active Synthroid 88 MCG tabletIndicatio ns:Hypothyroidi sm, unspecified type TAKE 1 TABLET DAILY 90 tablet 2 05/14/20 25 Active pravastatin (Pravachol) 20 MG tablet TAKE 1 TABLET EVERY MORNING 90 tablet 2 07/10/20 25 Active pravastatin (Pravachol) 20 MG tablet TAKE 1 TABLET EVERY MORNING 90 tablet 2 07/25/20 24 025 Discontinued Active Problems Problem Noted Date Diagnosed Date BPPV (benign paroxysmal positional vertigo) 05/31 Skin cancer 11/17/2023 11/17/2023 High cholesterol 11/22/2022 Atrial fibrillation (CMS/HCC) 08/03/2022 Ganglion and cyst of synovium, tendon and bursa 04/30/2022 History of torn meniscus of left knee 08/02/2021 11/17/2023 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 Nephrolithiasis 11/17/2018 MVP (mitral valve prolapse) 02/26/2016 Overview (11/22/2022): Noted in the past Bunion 12/13/2014 DDD (degenerative disc disease), lumbar 12/13/19 15 GERD (gastroesophageal reflux disease) 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 Benign prostatic hyperplasia 12/11/2014 Onychomycosis 12/11/2014 Insomnia 12/11/2014 Hypothyroid 12/11/2014 Tinea pedis 12/11/2014 Arthritis 12/11/2014 Dry eye 10/31/2014 Heartburn 10/31/2012 BPH (benign prostatic hyperplasia) 10/31/2009 Encounters Date Type Department Care Team Description 08/06/2025 10:45 AM EDT Office Visit [facility] [address] [place] [address] Ramon Cuellar MD Paroxysmal atrial fibrillation (CMS/HCC) (HCC) (Primary Dx); On statin therapy; Encounter for screening for malignant neoplasm of colon 08/06/2025 Travel 08/05/2025 Telephone [facility] [address] [place] [address] Ramon Cuellar MD chart prep 08/05/2025 Telephone [facility] [address] [place] [address] Sushila Gomez, MARGARITO 08/04/2025 Travel 07/10/2025 Refill [facility] [address] [place] [address] Ramon Cuellar MD 06/28/2025 Telephone [facility] [address] [place] [address] Sushila Gomez, RN 05/13/2025 Refill [facility] [address] [place] [address] Ramon Cuellar MD Hypothyroidism, unspecified type 05/09/2025 9:00 AM EDT Office Visit [facility] [address] [place] [address] Ramon Cuellar MD Paroxysmal atrial fibrillation (CMS/HCC) (Primary Dx); VILLATORO (dyspnea on exertion); Benign prostatic hyperplasia with nocturia; Hypothyroidism, unspecified type; Encounter for screening for malignant neoplasm of colon 05/09/2025 Travel 05/08/2025 Telephone [facility] [address] [place] [phone] Felicia Valdez [place] chart prep 05/08/2025 Travel from Last 3 Months Immunizations Immunization [...] Travel Start Travel End [place] 07/15/2025 07/15/2025 Last Filed Vital Signs Vital Sign Reading [...] Mass Index 26.76 08/06/2025 10:52 AM EDT Plan of Treatment Health Maintenance Due Date Last Done Comments CT Colonography 1953 Colonoscopy 1953 FIT 1953 Sigmoidoscopy 1953 Derm Melanoma Skin Check 1953 Hepatitis C Screening 1971 Hepatitis B Vaccines (3 of 3 - 19+ 3-dose series) 06/15/2011 02/13/2011, 01/13/2011, 12/16/2010 FOBT 03/12/2023 03/12/2022 Colorectal Cancer Screening 03/12/2025 FIT DNA/Cologuard 03/12/2025 03/12/2022 Depression Screening 05/09/2026 05/09/2025, 05/09/20 25 SDOH Screening 05/09/2026 05/09/2025 Alcohol/Substance Use Screening 08/06/2026 08/06/2025 Tobacco Screening 08/06/2026 08/06/2025 Lipid Panel 08/06/2030 08/06/2025, 10/02, 11/16/2023, Additional history exists DTaP/Tdap/Td Vaccines (3 - Td or Tdap) 08/17/2031 08/17/2021, 12/16/2010 Hepatitis A Vaccines Aged Out 12/16/2010 No long er eligible based on patient's age to complete this topic Zoster Vaccines Completed 06/21/2019, 03/31, 07/30/2013 Pneumococcal Vaccine: 50+ Years Completed 05/08/2020, 02/02/2019 RSV Patients and Patients Aged 60 years or older Completed 09/02/2023 COVID-19 Vaccine Completed 07/19/2025, , 10/19/2024, Additional history exists Influenza Vaccine Completed 08/02/2025, , 09/07/2024, Additional history exists HIB Vaccines Aged Out [...] On statin therapy COMPREHENSIVE METABOLIC PANEL Routine 05/09/2025 10:25 AM EDT VILLATORO (dyspnea on exertion) CBC WITH AUTO DIFFERENTIAL Routine 05/09/2025 10:25 AM EDT VILLATORO (dyspnea on exertion) TSH W/REFLEX TO FT4 Routine 05/09/2025 1 0:25 AM EDT Hypothyroidism, unspecified type PSA, TOTAL Routine 05/09/2025 10:25 AM EDT Benign prostatic hyperplasia with nocturia HM FIT DNA/COLOGUARD CANCER SCREENING Routine 03/12/2022 from Last 3 Months or Most Recently Relevant to Health Maintenance Results * Lipid Panel, Standard (08/06/2025 12:02 PM EDT) Triglycerides 49 <150 mg/dL [facility] Comment:Desirable Triglyceri de: less than 150 mg/dLBorderline High Triglyceride 150-199 mg/dLHigh Triglyceride: 200-499 mg/dLVery High Triglyceride: greater than or equal to 5OO mg/dL Cholesterol 136 <200 mg/dL [facility] Comment:Desirable Cholestero l: less than 200 mg/dLBorderline High Cholesterol: 200-239 mg/dLHigh Cholesterol: greater than 239 mg/dL LDL Cholesterol Calculated 52 <100 mg/dL [facility] Comment:Desirable LDL: less than 100 mg/dLNear Optimal/Above Optimal LDL: 110- 129 mg/dLBorderline High LDL: 130-159 mg/dLHigh LDL: 160-189 mg/dLVery High LDL: greater than or equal to 190 mg/dL HDL Cholesterol 75 >40 mg/dL [facility] Comment:Desirable HDL: great er than 40 mg/dL Note: This HDL assay may give artificially low results in patients with liver disease. Blood Venous blood specimen / Unknown 08/06/2025 12:02 PM EDT 08/06/2025 12:02 PM EDT us Ramon Cuellar MD LAB BLOOD ORDERABLES Final Resul t [facility] [address] [place] [address] [phone] * (ABNORMAL) Comprehensive Metabolic Panel (08/06/2025 12:02 PM EDT) Only the most recent of2 resultswithin the time period is included. Sodium 140 135 - 145 mmol/L [facility] Potassium 3.9 3.3 - 5.1 mmol/L [facility] Chloride 109(H) 96 - 108 mmol/L [facility] Carbon Dioxide 23 22 - 29 mmol/L [facility] Anion Gap 12 12 - 20 [facility] Urea Nitrogen (BUN) 18(H) 9 - 16 mg/dL [facility] Creatinine, Serum 1.29 0.5 - 1.4 mg/dL [facility] Estimated Glomerular Filt Rate 55 [facility] Comment:Chronic Kidney Disea se: Estimated GFR < 60 mL/min/1.82t1Skradg Kidney Disease: Estimated GFR < 15 mL/min/1.73m2 Glucose 79 60 - 115 mg/dL [facility] Calcium 8.9 8.4 - 10.2 mg/dL [facility] Bilirubin, Total 1.3(H) 0.0 - 1.0 mg/dL [facility] Comment:Slight Icterus. Aspartate Amino Transferase 26 5 - 37 U/L [facility] Alanine Aminotransferase 22 0 - 40 U/L [facility] Total Protein 6.6 6.5 - 8.0 g/dL [facility] Albumin Level 4.1 3.5 - 5.0 g/dL [facility] Alkaline Phosphatase 77 39 - 117 U/L [facility] Blood Venous blood specimen / Unknown 08/06/2025 12:02 PM EDT 08/06/2025 12:02 PM EDT us Ramon Cuellar MD LAB BLOOD ORDERABLES Final Resul t Performing Organization Address [facility]/ZIP Co de Phone Number [facility] [address] [place] [phone] * TSH W/Reflex to FT4 (05/09/2025 10:25 AM EDT) TSH reflex Free T4 3.98 0.32 - 4.0 uIU/mL [facility] Blood Venous blood specimen / Unknown 05/09/2025 10:25 AM EDT 05/09/2025 10:25 AM EDT us Ramon Cuellar MD LAB BLOOD ORDERABLES Final Resul t Performing Organization Address [facility] Co de Phone Number [facility] [address] [place] [phone] * CBC auto differential (05/09/2025 10:25 AM EDT) White Blood Count 5.8 4.8 - 10.8 X10*3/uL [facility] Red Blood Count 4.73 4.60 - 5.80 X10*6/uL [facility] Hemoglobin 14.6 14.0 - 18.0 g/dl [facility] Hematocrit 42.2 42.0 - 52.0 % [facility] Mean Corpuscular Volume 89.2 80.0 - 98.0 fL [facility] Mean Corpuscular Hemoglobin 30.9 27.0 - 33.0 pg [facility] Mean Corpuscular HGB Conc 34.6 31.0 - 36.0 g/dl [facility] Red Cell Distribution Width 12.8 11.0 - 16.0 % [facility] Platelet Count 171 160 - 400 X10*3/uL [facility] Mean Platelet Volume 9.7 9.4 - 12.4 fL [facility] Neutrophils Percent Auto 69.1 45 - 73 % [facility] Imm Gran Pct Auto 0.2 0.0 - 0.4 % [facility] Lymphocytes Percent Auto 20.2 20 - 40 % [facility] Monocytes Percent Auto 8.6 2 - 11 % [facility] Eosinophils Percent Auto 1.7 0 - 4 % [facility] Basophils Percent Auto 0.2 0 - 2 % [facility] NRBC Pct Auto 0.0 0.0 - 0.2 /100WBC [facility] Neutrophils Absolute Auto 4.0 2.0 - 8.3 x10*3/uL [facility] Imm Gran Abs Auto 0.01 0.00 - 0.03 X10*3/uL [facility] Lymphocytes Absolute Auto 1.2 1.2 - 4.9 X10*3/uL [facility] Monocytes Absolute Auto 0.5 0.1 - 1.2 X10*3/uL [facility] Eosinophils Absolute Auto 0.1 0.0 - 0.4 X10*3/uL [facility] Basophils Absolute Auto 0.0 0.0 - 0.2 X10*3/uL [facility] NRBC Abs Auto 0.000 0.0 - 0.012 X10*3/uL [facility] Blood Venous blood specimen / Unknown 05/09/2025 10:25 AM EDT 05/09/2025 10:25 AM EDT us Ramon Cuellar MD LAB BLOOD ORDERABLES Final Resul t [facility] [address] [place] [address] [phone] * PSA,Total (05/09/2025 10:25 AM EDT) Prostate Specific Antigen 0.60 <0.05 - 4.0 ng/mL [facility] Comment:PSA methodology: Mark Damon i ChemiluminescentMicroparticle Immunoassay (CMIA) Blood Venous blood specimen / Unknown 05/09/2025 10:25 AM EDT 05/09/2025 10:25 AM EDT us Ramon Cuellar MD LAB BLOOD ORDERABLES Final Resul t [facility] [address] [place] [phone] * FIT DNA/Cologuard Cancer Screening (03/12/2022) Cologuard Cancer Screen Negative Comment:Negative F/U in 3 ye ars Stool us Ramon Cuellar MD HEALTH MAINTENANCE Final Result from Last 3 Months or Most Recently Relevant to Health Maintenance Insurance [employer] [place] [place] PPO Care Teams Scrap Drop Crane Operator Relationship Specialty Start Date End Date Name, MD Ramon [address] [place] [address] [phone] PCP - General Family Medicine 08/18/21
== END 2025-08-06 11:43 | disposition home or self-care (01) ==
LOC: HO.LAB 11:42
PROVIDERS: PCP Internal Medicine Geriatric Medicine; Visit Provider Internal Medicine Geriatric Medicine
DX: I48.0 Paroxysmal atrial fibrillation (principal); Z79.899 Other long term (current) drug therapy
CPT/HCPCS: 36415; 80053; 80061

== ENCOUNTER 2025-09-30 14:37 | Outpatient (AMB) | payer MEDICARE, SELFPAY ==
--- NOTE | 2025-09-30 15:05 | A.OFFVIS_ITS ---
Vital Signs 09/30/25 15:08 Height 5 ft 6 in Weight 168 lb 13.985 oz BMI 27.3 BP 110/70 Blood Pressure Location Lt brachial Position Sitting Pulse 58 Pulse Source Monitor Intake Visit Reasons: r/s 07/15/25 3 mos followup Intake Note: r/s 3 mth f/up New Car Inspector Required: No Accompanied by: Self / Same As Patient Allergies No Known Allergies (No Known Allergies*) Allergy (Verified 04/13/23 10:49) Medication List - Last Reconciled 09/30/25 by Jose Juan Lemus MD apixaban 5 mg PO BID dronedarone (Multaq) 400 mg PO BID latanoprost 0.005% 1 drp ophthalmic (eye) BEDTIME levothyroxine (Synthroid) 88 mcg PO DAILY pravastatin 20 mg PO DAILY tamsulosin 0.4 mg PO DAILY zolpidem 5 mg PO BEDTIME PRN HPI Comments Details: [age] year gentleman who is here for follow-up. He previously had atrial fibrillation and was cardioverted. He was started on flecainide and metoprolol. He could not tolerate the metoprolol and eventually was changed to atenolol. Subsequently was noticed to be bradycardic and eventually got off the flecainide and was taking atenolol only along with Eliquis. He was seen in the office again and was noted to be in atrial flutter. He was complaining of dyspnea. After discussion he was taken for cardioversion and was taken off the atenolol and started on Multaq. Since then he has been in sinus rhythm. He has been feeling better and is back to his normal self. Taking Eliquis regularly. 09/30/25: He is here for follow-up. EKGs in the office is showing sinus bradycardia 58 beats per minute. He is on Multaq 400 mg twice a day and Eliquis 5 mg twice a day. He has been tolerating Multaq well and has been in sinus rhythm. Denying any symptoms. He had some skin biopsies done and had bleeding from the site. We discussed that he has to be vigilant about any cuts etcetera and put pressure at the site in case there is bleeding. [facility] Medical History Thyroid disease PAF (paroxysmal atrial fibrillation) Surgical History History of circumcision Family History Mother Cancer Father Heart disease S/P triple vessel bypass Diabetes Amputation leg, bilat Paternal Uncle Heart disease Social History Are you a primary home care music therapist to a significant other at home: No Do you presently have visiting nurse or other home services: No Alcohol intake: current Alcohol intake frequency: does not drink Patient Tobacco Use Status: Never used Tobacco Second Hand Smoke Exposure: No Review of Systems Const Denies chills, Denies fatigue, Denies fever(s), Denies frequent falls, Denies weakness, Denies weight gain and Denies weight loss ENT Denies dizziness Card Denies chest pain, Denies leg edema, Denies lightheadedness, Denies palpitations, Denies dyspnea and Denies dyspnea on exertion Resp Denies cough, Denies dyspnea and Denies dyspnea on exertion GI Denies hematochezia Musc Denies abnormal gait, Denies muscle weakness, Denies numbness, Denies radiating pain into limb and Denies tingling Neuro Denies abnormal gait, Denies dizziness, Denies frequent falls, Denies numbness, Denies tingling and Denies weakness Endo Denies fatigue and Denies palpitations Physical Exam Vital Signs: Last Vital Signs Pulse 58 09/30/25 15:08 BP 110/70 09/30/25 15:08 BMI result Body Mass Index 27.3 GENERAL APPEARANCE: in no acute distress, pleasant. NECK: no carotid bruit, no jugular venous distention. SKIN: no suspicious lesions, warm and dry. HEART: no murmurs, regular rate and rhythm. Bradycardic. LUNGS: clear to auscultation bilaterally. ABDOMEN: soft, nontender. EXTREMITIES: no edema. PERIPHERAL PULSES: equal. NEUROLOGIC: No gross deficits, AAO X 3 Office Procedures EKG Details: Sinus bradycardia 58 beats per minute, poor R-wave progression and can not rule out anterior infarct, first-degree AV block with VA interval 214 milliseconds. QTC 428 milliseconds. [id number], Complete Assessment & Plan Assessment & Plan (1) Atrial flutter: Code(s): I48.92 - Unspecified atrial flutter Category: Medical Qualifiers: Atrial flutter type: typical Qualified Code(s): I48.3 - Typical atrial flutter Plan Pleasant 70 year gentleman who has background history of atrial fibrillation and atrial flutter. He initially was cardioverted for atrial fibrillation and was started on flecainide but could not tolerate it. He subsequently developed atrial flutter and was cardioverted and started on Multaq. He has been doing well with Multaq and Eliquis. We discussed about ablation but he wishes to just stay on medications at this point. He will see us back in 6 months. Thank you for allowing me to participate in the care of your patient. Please feel free to contact me if you have any questions. Coding Level of Care Code Est Pt Level 4 (81450) Diagnoses Typical atrial flutter I48.3 Atrial flutter type: typical CPT Codes EKG - CPT: 47692-[id number], Complete ([id number])
[2025-09-30 15:08] VITALS: BP 110/70; PULSE 58; BMI 27.3
--- OUTSIDE RECORDS SUMMARY | 2025-09-30 17:54 | XMS_ITS | Encounter Summary ---
Author Organization [employer] Address [address] [facility] [address] [place] [address] Care Team Providers Care Office Services Coordinator Name Role Phone Name, Ramon LAY Primary Care Provider [phone] Reason for Visit * Reason Onset Date Comments Med Refill 03/22/2025 Encounter Details Date Type Department Care Team ([facility] st Contact Info) Description 03/22/2025 Refill [facility] [address] [place], [place] [phone] Name, MD Ramon [address] [place] [address] Social History Tobacco Use Types Packs/Day Years [...] documented as of this encounter Care Teams Office Services Coordinator Relationship Specialty Start Date End Date Name, MD Ramon [address] [place] [phone] PCP - General Family Medicine 08/18/21 documented as of this encounter
--- OUTSIDE RECORDS SUMMARY | 2025-09-30 17:54 | XMS_ITS | Clinical Summary ---
Author Organization [employer] Address [address] [facility] [address] [place] [address] Care Team Providers Care Etcher Enameling Name Role Phone Name, Ramon LAY Primary Care Provider [phone] Allergies Active Allergy Reactions Criticality Noted Date Comments Other 10/31/2011 Medications latanoprost (Xalatan) 0.005 % ophthalmic solution Administer 1 drop into both eyes at bedtime. 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 Benign prostatic hyperplasia 12/11/2014 Onychomycosis 12/11/2014 Insomnia 12/11/2014 Hypothyroid 12/11/2014 Tinea pedis 12/11/2014 Arthritis 12/11/2014 Dry eye 10/31/2014 Heartburn 10/31/2012 BPH (benign prostatic hyperplasia) 10/31/2009 Encounters Date Type Department Care Team Description 08/13/2025 Refill [facility] [address] [place], [place] [phone] Ramon Cuellar MD 08/06/2025 10:45 AM EDT Office Visit [facility] [address] [place] [address] Ramon Cuellar MD Paroxysmal atrial fibrillation (CMS/HCC) (HCC) (Primary Dx); On statin therapy; Encounter for screening for malignant neoplasm of colon 08/06/2025 Travel 08/05/2025 Telephone [facility] [address] [place] [address] Ramon Cuellar MD chart prep 08/05/2025 Telephone [facility] [address] [place], [place] [phone] Sushila Gomez, MARGARITO 08/04/2025 Travel 07/10/2025 Refill [facility] [address] [place] [address] Ramon Cuellar MD from Last 3 Months Immunizations Immunization Administration [...] Cancer Screening 03/12/2025 FIT DNA/Cologuard 03/12/2025 03/12/2022 COVID-19 Vaccine (2024- season) 2026 07/19/2025, 04/16/2025, 10/19/2024, Additional history exists Depression Screening 05/09/2026 05/09/2025, 05/09/20 25 SDOH [...] or older Completed 09/02/2023 Influenza Vaccine Completed 08/02/2025, , 09/07/2024, Additional [...] atrial fibrillation (CMS/HCC) (HCC) On statin therapy HM FIT DNA/COLOGUARD CANCER SCREENING Routine 03/12/2022 from Last 3 Months or Most Recently Relevant to Health Maintenance Results * Lipid Panel, Standard (08/06/2025 12:02 PM EDT) Triglycerides 49 <150 mg/dL [facility] Comment:Desirable Triglyceri de: less than 150 mg/dLBorderline High Triglyceride 150-199 mg/dLHigh Triglyceride: 200-499 mg/dLVery High Triglyceride: greater than or equal to 5OO mg/dL Cholesterol 136 <200 mg/dL [facility] Comment:Desirable Cholestero l: less than 200 mg/dLBorderline High Cholesterol: 200-239 mg/dLHigh Cholesterol: greater than 239 mg/dL LDL Cholesterol Calculated 52 <100 mg/dL [facility] Comment:Desirable LDL: less than 100 mg/dLNear Optimal/Above Optimal LDL: 110- 129 mg/dLBorderline High LDL: 130-159 mg/dLHigh LDL: 160-189 mg/dLVery High LDL: greater than or equal to 190 mg/dL HDL Cholesterol 75 >40 mg/dL [facility] Comment:Desirable HDL: great er than 40 mg/dL Note: This HDL assay may give artificially low results in patients with liver disease. Blood Venous blood specimen / Unknown 08/06/2025 12:02 PM EDT 08/06/2025 12:02 PM EDT us Ramon Name LAB BLOOD ORDERABLES Final Resul t [facility] [address] [place] [phone] * (ABNORMAL) Comprehensive Metabolic Panel (08/06/2025 12:02 PM EDT) Sodium 140 135 - 145 mmol/L [facility] Potassium 3.9 3.3 - 5.1 mmol/L [facility] Chloride 109(H) 96 - 108 mmol/L [facility] Carbon Dioxide 23 22 - 29 mmol/L [facility] Anion Gap 12 12 - 20 [facility] Urea Nitrogen (BUN) 18(H) 9 - 16 mg/dL [facility] Creatinine, Serum 1.29 0.5 - 1.4 mg/dL [facility] Estimated Glomerular Filt Rate 55 [facility] Comment:Chronic Kidney Disea se: Estimated GFR < 60 mL/min/1.59m0Qrfydy Kidney Disease: Estimated GFR < 15 mL/min/1.73m2 Glucose 79 60 - 115 mg/dL [facility] Calcium 8.9 8.4 - 10.2 mg/dL [facility] Bilirubin, Total 1.3(H) 0.0 - 1.0 mg/dL [facility] Comment:Slight Icterus. Aspartate Amino Transferase 26 5 - 37 U/L [facility] Alanine Aminotransferase 22 0 - 40 U/L [facility] Total Protein 6.6 6.5 - 8.0 g/dL [facility] Albumin Level 4.1 3.5 - 5.0 g/dL [facility] Alkaline Phosphatase 77 39 - 117 U/L [facility] Blood Venous blood specimen / Unknown 08/06/2025 12:02 PM EDT 08/06/2025 12:02 PM EDT us Ramon Cuellar MD LAB BLOOD ORDERABLES Final Resul t [facility] [address] [place] [phone] * FIT DNA/Cologuard Cancer Screening (03/12/2022) Cologuard Cancer Screen Negative Comment:Negative F/U in 3 ye ars Stool us Ramon Cuellar MD HEALTH MAINTENANCE Final Result from Last 3 Months or Most Recently Relevant to Health Maintenance Insurance [employer] [place] P[employer] Care Teams Etcher Enameling Relationship Specialty Start Date End Date Name, MD Ramon [address] [place] [phone] PCP - General Family Medicine 08/18/21
== END 2025-09-30 15:33 | disposition home or self-care (01) ==
LOC: HO.HCS 14:37
PROVIDERS: PCP Internal Medicine Geriatric Medicine; Visit Provider Internal Medicine Cardiovascular Disease
DX: I48.3 Typical atrial flutter (principal)
CPT/HCPCS: 93010; 99214

== ENCOUNTER → 2025-09-30 14:37 | Outpatient (BNVA) | payer MEDICARE, SELFPAY | PROVIDERS: PCP Internal Medicine Geriatric Medicine; Visit Provider Internal Medicine Cardiovascular Disease | DX: I48.3 Typical atrial flutter (principal); Z79.01 Long term (current) use of anticoagulants | CPT/HCPCS: 93005; 99212 ==